=== PATIENT | male | born 1960 | race Caucasian/White ===

== ENCOUNTER 2020-06-11 17:25 | Emergency (ER) | payer BC ==
[2020-06-11 17:40] VITALS: BP 143/90; PULSE 73; RESP 18; TEMP 98.4
[2020-06-11] MEDS ORDERED: DIPH,PERTUS(ACELL)TETVAC-LF 0.5 ML VIAL IM ONE (18:02)
[2020-06-11] MEDS ORDERED: TOPICAL SKIN ADHESIVE 1 EACH AMP TOPICAL ONE (18:02)
--- NOTE | 2020-06-11 18:05 | ED ---
General Adult HPI - General Chief complaint: Head Injury Stated complaint: Head Lac Time Seen by Provider: 06/11/20 17:55 Source: patient, RN notes reviewed, old records reviewed Mode of arrival: wheelchair Limitations: no limitations - History of Present Illness Initial comments: 59-year-old male presenting with a head injury. Patient had a metal chair to pick her fall and strike him in his forehead. No loss consciousness. Patient has overlying laceration on his forehead with minimal bleeding. No anticoagulation. No other significant injuries. - Related Data Allergies Allergy/AdvReac Type Severity Reaction Status Date / Time preservative multidose vial Allergy Hallucinati Uncoded 06/11/20 17:40 ons Review of Systems ROS Statement: Those systems with pertinent positive or pertinent negative responses have been documented in the HPI. ROS Other: All systems not noted in ROS Statement are negative. Past Medical History Past Medical History: Cancer, Hyperlipidemia Additional Past Medical History / Comment(s): seasonal allergies, kidney cancer Additional Past Surgical History / Comment(s): partial nephrectomy Past Psychological History: Depression Smoking Status: Current every day smoker Past Alcohol Use History: Occasional Past Drug Use History: None Reported General Exam Limitations: no limitations General appearance: alert, in no apparent distress Head exam: Present: normocephalic, other (Frontal hematoma, overlying 3 cm partial thickness laceration.) Eye exam: Present: normal appearance, PERRL ENT exam: Present: normal exam Neck exam: Present: normal inspection. Absent: tenderness, meningismus Respiratory exam: Present: normal lung sounds bilaterally. Absent: respiratory distress, wheezes, rales Cardiovascular Exam: Present: regular rate, normal rhythm GI/Abdominal exam: Present: soft. Absent: distended, tenderness Extremities exam: Present: normal inspection, normal capillary refill. Absent: pedal edema, calf tenderness Neurological exam: Present: alert, oriented X3, CN II-XII intact. Absent: motor sensory deficit Psychiatric exam: Present: normal affect, normal mood Skin exam: Present: warm, dry. Absent: cyanosis, diaphoretic Course Vital Signs 06/11/20 17:36 Temperature 98.4 F Pulse Rate 73 Respiratory 18 Rate Blood Pressure 143/90 O2 Sat by Pulse 99 Oximetry - Reevaluation(s) Reevaluation #1: 06/11/20 18:03 Tetanus up-to-date however patient has had adverse reaction to tetanus vaccine. Procedures - Laceration Laceration #1 Consent Obtained: verbal consent Indication: laceration Site: face Description: linear Depth: simple, single layer Pre-repair: wound explored, irrigated extensively, deep structures intact Type of Sutures: other (Skin adhesive) Technique: other (Dermabond) Patient Tolerated Procedure: well, no complications Medical Decision Making - Medical Decision Making 59-year-old male with head injury, laceration of the forehead, 3 cm partial thickness laceration is repaired with Dermabond at the patient's request. Head CT negative for intracranial hemorrhage. Disposition Clinical Impression: Concussion without loss of consciousness, Laceration Disposition: HOME SELF-CARE Condition: Good Instructions (If sedation given, give patient instructions): Concussion (ED), Laceration (ED) Is patient prescribed a controlled substance at d/c from ED?: No Referrals: Phani Decker DO [Primary Care Provider] - 1-2 days Time of Disposition: 19:05
--- NOTE | 2020-06-11 18:45 | CT ---
EXAMINATION TYPE: CT brain wo con DATE OF EXAM: 06/11/2020 COMPARISON: None HISTORY: Head laceration. CT DLP: 1137.4 mGycm Automated exposure control for dose reduction was used. Images obtained of the brain without contrast. Ventricles and sulci appear normal for age. There is no mass effect nor midline shift. There is no si gn of intracranial hemorrhage. The calvarium is intact. There is high density at the skin surface ove r the frontal bone that could be small superficial foreign bodies. IMPRESSION: No intracranial abnormality.
== END 2020-06-11 19:47 | disposition home or self-care (01) ==
LOC: EC 17:25
DX: S06.0X0A Concussion without loss of consciousness, initial encounter (principal); E78.5 Hyperlipidemia, unspecified; F17.200 Nicotine dependence, unspecified, uncomplicated; Z85.528 Personal history of other malignant neoplasm of kidney; Z90.5 Acquired absence of kidney; W22.8XXA Striking against or struck by other objects, initial encounter
CPT/HCPCS: 12011; 70450; 99283

== ENCOUNTER 2021-01-12 12:17 | Inpatient (IN) | payer BC ==
[2021-01-12] MEDS ORDERED: MORPHINE SULFATE 4 MG/ML SYRINGE IV STA (12:45)
--- NOTE | 2021-01-12 12:55 | ED ---
General Adult HPI - General Chief complaint: Chest Pain Stated complaint: chest pain Time Seen by Provider: 01/12/21 12:38 Source: patient, RN notes reviewed, old records reviewed Mode of arrival: wheelchair Limitations: no limitations - History of Present Illness Initial comments: 60-year-old male presenting for evaluation of right lateral chest pain which is worse with movement, worse with deep inspiration. This been present for the past 2 weeks. He has had night sweats over this time. No weight loss. No central chest pain. No cough. He does not have a measured fever but believes he has been running fevers at night. Previous history of renal cell carcinoma. Current smoker. - Related Data Allergies Allergy/AdvReac Type Severity Reaction Status Date / Time preservative multidose vial Allergy Hallucinati Uncoded 01/12/21 12:30 ons Review of Systems ROS Statement: Those systems with pertinent positive or pertinent negative responses have been documented in the HPI. ROS Other: All systems not noted in ROS Statement are negative. Past Medical History Past Medical History: Cancer, Hyperlipidemia Additional Past Medical History / Comment(s): seasonal allergies, kidney cancer Additional Past Surgical History / Comment(s): partial nephrectomy Past Psychological History: Depression Smoking Status: Current every day smoker Past Alcohol Use History: Daily Past Drug Use History: None Reported General Exam Limitations: no limitations General appearance: alert, in no apparent distress Head exam: Present: atraumatic, normocephalic Eye exam: Present: normal appearance, PERRL ENT exam: Present: normal exam Neck exam: Present: normal inspection. Absent: tenderness, meningismus Respiratory exam: Present: chest wall tenderness (Right lateral, axillary), decreased breath sounds. Absent: respiratory distress Cardiovascular Exam: Present: regular rate, normal rhythm GI/Abdominal exam: Present: soft. Absent: distended, tenderness, guarding Extremities exam: Present: normal inspection, normal capillary refill. Absent: pedal edema, calf tenderness Neurological exam: Present: alert, oriented X3, CN II-XII intact. Absent: motor sensory deficit Psychiatric exam: Present: normal affect, normal mood Skin exam: Present: warm, dry, intact. Absent: cyanosis, diaphoretic Course Vital Signs 01/12/21 01/12/21 12:26 13:15 Temperature 98.5 F Pulse Rate 66 Pulse Rate [ 63 Sitting Pulse Oximetery] Respiratory 18 Rate Blood Pressure 127/80 O2 Sat by Pulse 97 Oximetry EKG Findings - EKG Comments: EKG Findings:: DD: Normal sinus rhythm, rate of 67, OR interval 166, QRS duration 76, no ST segment elevation. Medical Decision Making - Medical Decision Making 60-year-old male with right-sided pleuritic chest pain. Workup is initiated. He has a mild leukocytosis, stable he will, normal electrolytes, positive d- dimer, normal troponin, negative coronavirus. Patient has x-ray showing no pneumonia. CT angiography was performed which shows a large right-sided pneumonia with parapneumonic effusion. Patient started on antibiotics. He will be admitted for IV antibiotics and pain control. Case discussed with Dr. Hernandez, will admit. - Lab Data Result diagrams: 01/12/21 13:07 01/12/21 13:07 Lab Results 01/12/21 01/12/21 01/12/21 Range/Units 13:07 13:07 13:07 WBC 12.4 H (3.8-10.6) k/uL RBC 4.39 (4.30-5.90) m/uL Hgb 15.0 (13.0-17.5) gm/dL Hct 44.3 (39.0-53.0) % MCV 100.9 H (80.0-100.0) fL MCH 34.1 (25.0-35.0) pg MCHC 33.8 (31.0-37.0) g/dL RDW 12.2 (11.5-15.5) % Plt Count 241 (150-450) k/uL MPV 7.7 Neutrophils % 83 % Lymphocytes % 9 % Monocytes % 4 % Eosinophils % 2 % Basophils % 0 % Neutrophils # 10.4 H (1.3-7.7) k/uL Lymphocytes # 1.2 (1.0-4.8) k/uL Monocytes # 0.5 (0-1.0) k/uL Eosinophils # 0.2 (0-0.7) k/uL Basophils # 0.0 (0-0.2) k/uL PT 11.0 (9.0-12.0) sec INR 1.0 (<1.2) APTT 22.4 (22.0-30.0) sec D-Dimer 0.81 H (<0.60) mg/L FEU Sodium 136 L (137-145) mmol/L Potassium 4.1 (3.5-5.1) mmol/L Chloride 106 (98-107) mmol/L Carbon Dioxide 24 (22-30) mmol/L Anion Gap 6 mmol/L BUN 15 (9-20) mg/dL Creatinine 0.72 (0.66-1.25) mg/dL Est GFR (CKD-EPI)AfAm >90 (>60 ml/min/1.73 sqM) Est GFR (CKD-EPI)NonAf >90 (>60 ml/min/1.73 sqM) Glucose 111 H (74-99) mg/dL Calcium 9.4 (8.4-10.2) mg/dL Magnesium 1.8 (1.6-2.3) mg/dL Total Bilirubin 0.6 (0.2-1.3) mg/dL AST 22 (17-59) U/L ALT 23 (4-49) U/L Alkaline Phosphatase 70 (38-126) U/L Troponin I (0.000-0.034) ng/mL Total Protein 6.2 L (6.3-8.2) g/dL Albumin 3.6 (3.5-5.0) g/dL Coronavirus (PCR) (Not Detectd) 01/12/21 01/12/21 Range/Units 13:07 13:20 WBC (3.8-10.6) k/uL RBC (4.30-5.90) m/uL Hgb (13.0-17.5) gm/dL Hct (39.0-53.0) % MCV (80.0-100.0) fL MCH (25.0-35.0) pg MCHC (31.0-37.0) g/dL RDW (11.5-15.5) % Plt Count (150-450) k/uL MPV Neutrophils % % Lymphocytes % % Monocytes % % Eosinophils % % Basophils % % Neutrophils # (1.3-7.7) k/uL Lymphocytes # (1.0-4.8) k/uL Monocytes # (0-1.0) k/uL Eosinophils # (0-0.7) k/uL Basophils # (0-0.2) k/uL PT (9.0-12.0) sec INR (<1.2) APTT (22.0-30.0) sec D-Dimer (<0.60) mg/L FEU Sodium (137-145) mmol/L Potassium (3.5-5.1) mmol/L Chloride (98-107) mmol/L Carbon Dioxide (22-30) mmol/L Anion Gap mmol/L BUN (9-20) mg/dL Creatinine (0.66-1.25) mg/dL Est GFR (CKD-EPI)AfAm (>60 ml/min/1.73 sqM) Est GFR (CKD-EPI)NonAf (>60 ml/min/1.73 sqM) Glucose (74-99) mg/dL Calcium (8.4-10.2) mg/dL Magnesium (1.6-2.3) mg/dL Total Bilirubin (0.2-1.3) mg/dL AST (17-59) U/L ALT (4-49) U/L Alkaline Phosphatase (38-126) U/L Troponin I <0.012 (0.000-0.034) ng/mL Total Protein (6.3-8.2) g/dL Albumin (3.5-5.0) g/dL Coronavirus (PCR) Not Detected (Not Detectd) Disposition Clinical Impression: Pneumonia, Parapneumonic effusion Disposition: ADMITTED IP TO THIS [facility] Condition: Stable Is patient prescribed a controlled substance at d/c from ED?: No Referrals: Phani Decker DO [Primary Care Provider] - 1-2 days Decision to Admit Reason: Admit from EC Decision Date: 01/12/21 Decision Time: 15:50
[2021-01-12 13:17] LABS: Basophils % (A) 0 %; Eosinophils # (A) 0.2 k/uL (0-0.7); Eosinophils % (A) 2 %; HCT 44.3 % (39.0-53.0); Lymphocytes # (A) 1.2 k/uL (1.0-4.8); Lymphocytes % (A) 9 %; MCH 34.1 pg (25.0-35.0); MCHC 33.8 g/dL (31.0-37.0); MCV 100.9 fL (80.0-100.0); Mean Platelet Volume 7.7; Monocytes # (A) 0.5 k/uL (0-1.0); Monocytes % (A) 4 %; Neutrophils # (A) 10.4 k/uL (1.3-7.7); Neutrophils % (A) 83 %; Platelet Count 241 k/uL (150-450); RBC 4.39 m/uL (4.30-5.90); RDW 12.2 % (11.5-15.5); WBC 12.4 k/uL (3.8-10.6)
[2021-01-12 13:32] LABS: Partial Thromboplastin Time 22.4 sec (22.0-30.0)
--- NOTE | 2021-01-12 13:40 | XR ---
EXAMINATION TYPE: XR chest 2V DATE OF EXAM: 01/12/2021 COMPARISON: NONE TECHNIQUE: PA and lateral views submitted. HISTORY: Chest pain FINDINGS: Bilateral lower lobe infiltrate and small effusion. Heart size normal. No pneumothorax. Coarsened int erstitium. IMPRESSION: 1. Bilateral infiltrate and pleural effusion correlate for pneumonia otherwise consider CHF.
[2021-01-12 13:45] LABS: ALT 23 U/L (4-49); AST 22 U/L (17-59); African American GFR (CKD) >90 (>60 ml/min/1.73 sqM); Albumin 3.6 g/dL (3.5-5.0); Alkaline Phosphatase 70 U/L (38-126); Anion Gap 6 mmol/L; Blood Urea Nitrogen 15 mg/dL (9-20); Calcium 9.4 mg/dL (8.4-10.2); Carbon Dioxide 24 mmol/L (22-30); Chloride 106 mmol/L (98-107); Glucose 111 mg/dL (74-99); Magnesium 1.8 mg/dL (1.6-2.3); Non-African American GFR(CKD) >90 (>60 ml/min/1.73 sqM); Potassium 4.1 mmol/L (3.5-5.1); Sodium 136 mmol/L (137-145); Total Bilirubin 0.6 mg/dL (0.2-1.3); Total Protein 6.2 g/dL (6.3-8.2)
[2021-01-12] MEDS ORDERED: HYDROmorphone 0.5 MG/0.5 ML SYRINGE IVP STA (14:06)
[2021-01-12] MEDS ORDERED: KETOROLAC 15 MG/ML 1 ML VIAL IVP STA (14:20)
[2021-01-12] MEDS ORDERED: cefTRIAXone IN SWFI 1,000 MG/10 ML SYRINGE IVP STA (15:20)
--- NOTE | 2021-01-12 15:32 | CT ---
EXAMINATION TYPE: CT angio chest DATE OF EXAM: 01/12/2021 COMPARISON: None HISTORY: chest pain CT DLP: 467.9 mGycm Automated exposure control for dose reduction was used. CONTRAST: Performed with IV Contrast, patient injected with 100 mL of Isovue 370. There are 3-D post processed images. There is right pleural effusion. There is patchy airspace infiltrate and atelectasis in the right low er lobe. There is similar mild interstitial infiltrate and atelectasis left lower lobe. Heart size is normal. There is no pericardial effusion. There is no mediastinal adenopathy. There are no hilar masses. There is normal contrast opacification of the pulmonary arteries. There are no filling defects. There is mild right bronchial adenopathy. The thoracic spine is intact. Sternum is intact. Upper abdominal soft tissues are intact. Thoracic aorta is intact. There is no aneurysm or dissection. IMPRESSION: No evidence of pulmonary embolism. Extensive pneumonia and atelectasis with pleural fluid in the righ t lower lobe. Mild infiltrate left lower lobe.
[2021-01-12] MEDS ORDERED: AZITHROMYCIN 500 MG in SODIUM CHLORIDE 0.9% 250 ML IVPB STA (15:46)
[2021-01-12] MEDS ORDERED: ACETAMINOPHEN TAB 325 MG TAB PO PRN (15:46)
[2021-01-12] MEDS ORDERED: KETOROLAC 15 MG/ML 1 ML VIAL IVP PRN (15:46)
[2021-01-12] MEDS ORDERED: NALOXONE 0.4 MG/ML 1 ML VIAL IV PRN (15:46)
[2021-01-12] MEDS ORDERED: NICOTINE 21MG/24HR PATCH TRANSDERM STA (15:50)
[2021-01-12] MEDS: SODIUM CHLORIDE 0.9% 1,000 ML IV SCH (16:42)
[2021-01-12] MEDS: HYDROmorphone 0.5 MG/0.5 ML SYRINGE IVP PRN (17:50)
[2021-01-12] MEDS: HYDROmorphone 1 MG/ML 1 ML SYRINGE IVP PRN (20:47)
[2021-01-13] MEDS: HYDROmorphone 1 MG/ML 1 ML SYRINGE IVP PRN ×4 (00:30→10:13)
[2021-01-13] MEDS: SODIUM CHLORIDE 0.9% 1,000 ML IV SCH ×2 (05:50→21:39)
[2021-01-13] MEDS: ATORVASTATIN 10 MG TAB PO SCH (09:28)
[2021-01-13] MEDS: HYDROmorphone 0.5 MG/0.5 ML SYRINGE IVP PRN (12:52)
[2021-01-13] MEDS: CEFEPIME 1 GM in SODIUM CHLORIDE 0.9% 50 ML IVPB SCH ×2 (12:53→21:25)
[2021-01-13] MEDS: ENOXAPARIN 40 MG/0.4 ML SYRINGE SQ SCH (12:53)
--- NOTE | 2021-01-13 14:17 | P.CNPUL ---
History of Present Illness Consult date: 01/13/21 Reason for consult: dyspnea Chief complaint: right lung pain History of present illness: 60-year-old male patient presented emergency department because of extensive pain and spasm along the right side of the chest. This started approximately 2- 3 weeks ago and over the past 24 hours it was getting quite severe. He was also having fever with a temperature of 102.2 at home. He was having some chills. He was uncomfortable. He was getting short of breath and he started developing also some cough and. Most significant complaint was the spasm along the right side of the chest. He presented emergency department. Chest x-ray revealed a right lower lobe consolidation. Computed tomography scan of the chest was also done that showed right lower lobe consolidation along with some volume loss and some infiltration involving the right midlung. Consider bilobar pneumonia. He was given IV cefepime. He is currently on oxygen at 2 L. Hemodynamically stable. Note that the patient's CAT scan also shows some background emphysema. The patient is a chronic smoker and continues to smoke around one pack of cigare ttes a day. No altered mentation. No hemoptysis. The pain is worse with deep breathing. Note previous history of any DVTs or pulmonary embolism. COVID-19 testing was negative. Does not receive his COVID-19 vaccination because of some history of ALLERGIES to hours tetanus shots. He has previous history of renal cell carcinoma and the patient has undergone partial nephrectomy on the right. No history of any cardiac disease. No myocardial infarction. No previous history of DVT or pulmonary embolism. No diabetes mellitus. 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 Review of Systems Constitutional: Reports chills, Reports fatigue, Reports fever, Reports poor appetite Eyes: denies as per HPI, denies blurred vision, denies bulging eye, denies decreased vision, denies diplopia, denies discharge, denies dry eye, denies irritation, denies itching, denies pain, denies photophobia, denies loss of peripheral vision, denies loss of vision, denies tunnel vision/blind spots Ears: deny: decreased hearing, ear discharge, earache, tinnitus Ears, nose, mouth and throat: Reports as per HPI Breasts: absent: as per HPI, gynecomastia Cardiovascular: Reports chest pain, Reports decreased exercise tolerance, Reports dyspnea on exertion, Reports shortness of breath Respiratory: Reports cough Gastrointestinal: Reports as per HPI Genitourinary: Reports as per HPI Musculoskeletal: Reports as per HPI Musculoskeletal: absent: ankle pain, ankle stiffness, ankle swelling, as per HPI, elbow pain, elbow stiffness, elbow swelling, foot pain, foot stiffness, foot swelling, hand pain, hand stiffness, hand swelling, hip pain, hip stiffness, hip swelling, knee pain, knee stiffness, knee swelling, shoulder pain, shoulder stiffness, shoulder swelling, wrist pain, wrist stiffness, wrist swelling Integumentary: Reports as per HPI Neurological: Reports as per HPI, Reports weakness Psychiatric: Reports as per HPI Endocrine: Reports as per HPI Hematologic/Lymphatic: Reports as per HPI Allergic/Immunologic: Reports as per HPI Past Medical History Past Medical History: Cancer, COPD, Hyperlipidemia Additional Past Medical History / Comment(s): seasonal allergies, kidney cancer- RCC had a partial nephrectomy on the right History of Any Multi-Drug Resistant Organisms: None Reported Additional Past Surgical History / Comment(s): partial nephrectomy Past Anesthesia/Blood Transfusion Reactions: No Reported Reaction Past Psychological History: Depression Smoking Status: Current every day smoker Past Alcohol Use History: Daily Past Drug Use History: None Reported - Past Family History Mother History Unknown: Yes Medications and Allergies Home Medications Medication Instructions Recorded Confirmed Type Atorvastatin Calcium [Lipitor] 10 mg PO DAILY 01/12/21 01/12/21 History DULoxetine HCL [Cymbalta] 30 mg PO HS 01/12/21 01/12/21 History Montelukast [Singulair] 10 mg PO HS 01/12/21 01/12/21 History Allergies Allergy/AdvReac Type Severity Reaction Status Date / Time preservative multidose vial Allergy Hallucinati Uncoded 01/12/21 16:11 ons Physical Exam Vitals: Vital Signs Temp Pulse Pulse Resp BP BP Pulse Ox 01/13/21 13:00 98.9 F 81 18 136/86 94 L 01/13/21 06:01 100.6 F H 92 18 127/89 92 L 01/13/21 03:45 85 18 122/86 95 01/13/21 00:31 99.0 F 97 18 122/86 94 L 01/12/21 21:30 70 18 122/86 96 01/12/21 18:52 73 18 97/77 92 L Intake and Output 01/12/21 01/13/21 01/13/21 22:59 06:59 14:59 Other: Weight 92.986 kg Gen. appearance, comfortable and mild degree of respiratory distress and the patient is getting pain is present on the right side of the chest Head exam was generally normal. There was no scleral icterus or corneal arcus. Mucous membranes were moist. Neck was supple and without jugular venous distension, thyromegaly, or carotid bruits. Carotids were easily palpable bilaterally. There was no adenopathy. Lungs sounds are diminished in the right lung base along with some limited contact his underlying bases especially on the right. Cardiac exam revealed the PMI to be normally situated and sized. The rhythm was regular and no extrasystoles were noted during several minutes of auscultation. The first and second heart sounds were normal and physiologic splitting of the second heart sound was noted. There were no murmurs, rubs, clicks, or gallops. Abdominal exam revealed normal bowel sounds. The abdomen was soft, non-tender, and without masses, organomegaly, or appreciable enlargement of the abdominal aorta. Examination of the extremities revealed easily palpable radial, femoral and pedal pulses. There was no cyanosis, clubbing or edema. Examination of the skin revealed no evidence of significant rashes, suspicious appearing nevi or other concerning lesions. Neurologically, the patient is awake and alert and the patient does not have any focal neurological deficit. Cranial nerves are essentially intact. Results - Laboratory Findings CBC and BMP: 01/12/21 13:07 01/12/21 13:07 PT/INR, D-dimer PT 11.0 sec (9.0-12.0) 01/12/21 13:07 INR 1.0 (<1.2) 01/12/21 13:07 D-Dimer 0.81 mg/L FEU (<0.60) H 01/12/21 13:07 Abnormal lab findings: Abnormal Labs 01/12/21 01/12/21 01/12/21 13:07 13:07 13:07 WBC 12.4 H MCV 100.9 H Neutrophils # 10.4 H D-Dimer 0.81 H Sodium 136 L Glucose 111 H Total Protein 6.2 L - Diagnostic Findings Chest x-ray: image reviewed CT scan - chest: image reviewed Assessment and Plan Plan: 1 acute right lower lobe pneumonia, likely community-acquired, involving the right lower lobe and to some minimal extent the right middle lobe. 2 acute pleuritic right-sided chest wall pain secondary to above 3 acute hypoxic respiratory failure secondary to above 4 mild leukocytosis 5 COPD with some limited emphysematous changes as evident on the CAT scan of the chest 6 history of smoking around one pack of cigarette a day and the patient carries more than [id number] smoking history 7 history of renal cell carcinoma post partial nephrectomy on the right 8 hyperlipidemia Plan Cover the patient with broad-spectrum antibiotics and provide him a combination of Levaquin and cefepime Blood cultures and sputum cultures IV Solu Medrol 40 mg every 12 hours Adequate pain control regarding his pleuritic right-sided chest wall pain Follow-up chest x-ray within the next 24-48 hours COVID-19 testing is been negative Smoking cessation counseling Albuterol nebulized treatments 4 times a day around the clock and when necessary Legionella urine antigen We'll continue to follow
[2021-01-13] MEDS ORDERED: IPRATROPIUM-ALBUTEROL 3 ML NEB INHALATION PRN (14:18)
[2021-01-13] MEDS: LEVOFLOXACIN 750 MG TAB PO SCH (15:56)
[2021-01-13] MEDS: methylPREDNISolone SOD SUCCI 40 MG/ML 1 ML VIAL IV SCH ×2 (15:56→21:32)
[2021-01-13] MEDS: NICOTINE 21MG/24HR PATCH TRANSDERM SCH (16:39)
[2021-01-13] MEDS ORDERED: NAPROXEN 250 MG TAB PO STA (16:41)
[2021-01-13] MEDS: IPRATROPIUM-ALBUTEROL 3 ML NEB INHALATION SCH ×3 (16:42→20:10)
[2021-01-13] MEDS: BUDESONIDE 1 MG/2 ML NEBU INHALATION SCH ×2 (16:42→20:10)
--- NOTE | 2021-01-13 16:43 | P.HPIM ---
History of Present Illness H&P Date: 01/13/21 Chief Complaint: Chest pain This is a pleasant 60-year-old patient who follows with Dr. Decker. Chronic stable medical conditions include ALLERGIES, joint pains, hyperlipidemia, long- standing smoker. Patient for 4-5 weeks has been having right-sided chest pain. Initially it was intermittent. Progressively got worse became became more constant. Pleuritic in nature. Started having fever and chills cough bouts of perspiration. Decreased appetite. Tired rundown. Patient had not seen anybody in the meantime. Decided to finally come in. Also some wheezing. Chest tightness. His at the bedside. Otherwise patient is rather fairly active. [Patient in the past has had a tetanus shot and 10 hours after that he had developed a severe reaction.] Because of that he did not take the COVID vaccination. Review of systems: GEN.: Fever chills decreased appetite tired EYES: None HEENT: None NECK: None RESPIRATORY: As above CARDIOVASCULAR: No left chest pain GASTROINTESTINAL: None GENITOURINARY: None MUSCULOSKELETAL: None LYMPHATICS: None HEMATOLOGICAL: None PSYCHIATRY: None NEUROLOGICAL: None Past medical history to include: Right-sided renal cell cancer with partial nephrectomy in 2014. Patient had serial follow-up optical 2 years ago. COPD, hyperlipidemia, seasonal ALLERGIES, depression Social history: Patient drinks 4-5 beers about 5 times a week. . 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 Family history: Reviewed, noncontributory to presentation Physical examination: VITAL SIGNS: 100.6, 92, 18, 1 27 x 89, 92% on 3 L GENERAL: BMI 29.4, reclining in bed, tired, awake. EYES: Pupils equal. Conjunctiva normal. HEENT: External appearance of nose and ears normal, oral cavity grossly normal. NECK: JVD not raised; masses not palpable. HEART: First and second heart sounds are normal; no edema. LUNGS: Respiratory rate increased, decreased breaths on some coarse crackles at the bases. ABDOMEN: Soft, nontender, liver spleen not palpable, no masses palpable. PSYCH: Alert and oriented x3; mood and affect normal. NEUROLOGICAL: Cranial nerves grossly intact; no facial asymmetry, power and sensation grossly intact. LYMPHATICS: No lymph nodes palpable in the axilla and neck INVESTIGATIONS, reviewed in the clinical context: WBC 12.4 hemoglobin 15 platelets 241 d-dimer 0.81 sodium 136 potassium 4.1 BUN 15 creatinine 0.7 to Troponin I less than 0.012 Coronavirus [PCR]: Not detected Urine Legionella antigen negative EKG tracing personally reviewed by me-normal sinus rhythm, 67/m Chest x-ray film personally reviewed by me-bilateral infiltrates. Pleural effusion. Chest CTA: Negative for PE. Extensive pneumonia and atelectasis with pleural effusion on the right lower lobe. Assessment and plan: -This patient's had pulmonary symptoms with severe pleuritic pain going on for good 4-5 weeks. Had not sought any medical attention. Has a significant pneumonia with effusion. Clinical picture of sepsis. IV cefepime 1 g every 8 hours started. IV fluids -Sepsis from pneumonia IV antibiotics, fluids -Acute COPD exacerbation in a current smoker DuoNeb 4 times a day, IV Solu-Medrol -Chronic nicotine dependence, cigarettes smoker Nicotine patch -Chronic ALLERGIES Singlet 10 mg daily at bedtime -Hyperlipidemia Lipitor 10 mg daily -Right-sided pleuritic chest pain from underlying pneumonia Naproxen 250 mg 3 times a day Care was discussed with the patient. Questions were answered. IV cefepime. IV fluids. DuoNeb, IV Solu-Medrol. Pulmonary consultation. Subcu Lovenox. Naproxen for pleurisy Given the complexity and severity of patient's condition expect the patient to be in the hospital at least for 2 overnights Past Medical History Past Medical History: Cancer, Hyperlipidemia Additional Past Medical History / Comment(s): seasonal allergies, kidney cancer Additional Past Surgical History / Comment(s): partial nephrectomy Past Psychological History: Depression Smoking Status: Current every day smoker Past Alcohol Use History: Daily Past Drug Use History: None Reported - Past Family History Mother History Unknown: Yes Medications and Allergies Home Medications Medication Instructions Recorded Confirmed Type Atorvastatin Calcium [Lipitor] 10 mg PO DAILY 01/12/21 01/12/21 History DULoxetine HCL [Cymbalta] 30 mg PO HS 01/12/21 01/12/21 History Montelukast [Singulair] 10 mg PO HS 01/12/21 01/12/21 History Allergies Allergy/AdvReac Type Severity Reaction Status Date / Time preservative multidose vial Allergy Hallucinati Uncoded 01/12/21 16:11 ons Physical Exam Vitals: Vital Signs Temp Pulse Pulse Resp BP Pulse Ox 01/13/21 06:01 100.6 F H 92 18 127/89 92 L 01/13/21 03:45 85 18 122/86 95 01/13/21 00:31 99.0 F 97 18 122/86 94 L 01/12/21 21:30 70 18 122/86 96 01/12/21 18:52 73 18 97/77 92 L 01/12/21 13:15 63 01/12/21 12:26 98.5 F 66 18 127/80 97 Results CBC & Chem 7: 01/12/21 13:07 01/12/21 13:07 Labs: Abnormal Lab Results - Last 24 Hours (Table) 01/12/21 01/12/21 01/12/21 Range/Units 13:07 13:07 13:07 WBC 12.4 H (3.8-10.6) k/uL MCV 100.9 H (80.0-100.0) fL Neutrophils # 10.4 H (1.3-7.7) k/uL D-Dimer 0.81 H (<0.60) mg/L FEU Sodium 136 L (137-145) mmol/L Glucose 111 H (74-99) mg/dL Total Protein 6.2 L (6.3-8.2) g/dL
[2021-01-13] MEDS: NAPROXEN 250 MG TAB PO SCH (21:32)
[2021-01-13] MEDS: MONTELUKAST 10 MG TAB PO SCH (21:34)
[2021-01-13] MEDS: FAMOTIDINE 20 MG TAB PO SCH (21:35)
[2021-01-13] MEDS: DULoxetine HCL 30 MG CAPSULE.DR PO SCH (22:04)
[2021-01-14] MEDS: CEFEPIME 1 GM in SODIUM CHLORIDE 0.9% 50 ML IVPB SCH ×3 (04:35→21:18)
[2021-01-14 07:54] VITALS: RESP 16
[2021-01-14] MEDS: methylPREDNISolone SOD SUCCI 40 MG/ML 1 ML VIAL IV SCH ×2 (07:56→21:19)
[2021-01-14] MEDS: LEVOFLOXACIN 750 MG TAB PO SCH (07:56)
[2021-01-14] MEDS: NAPROXEN 250 MG TAB PO SCH ×3 (07:56→21:18)
[2021-01-14] MEDS: FAMOTIDINE 20 MG TAB PO SCH ×2 (07:56→21:19)
[2021-01-14] MEDS: ATORVASTATIN 10 MG TAB PO SCH (07:56)
[2021-01-14] MEDS: ENOXAPARIN 40 MG/0.4 ML SYRINGE SQ SCH (07:57)
--- NOTE | 2021-01-14 07:58 | XR ---
EXAMINATION TYPE: XR chest 1V DATE OF EXAM: 01/14/2021 COMPARISON: 01/12/2021 HISTORY: 60-year-old male pneumonia TECHNIQUE: Single frontal view of the chest is obtained. FINDINGS: Heart normal size. Aorta and pulmonary vasculature within normal limits. Some mild patchy density at the left base probably represents atelectasis. Worsening, now more confluent airspace opacity at the right base. No pleural effusion. IMPRESSION: Worsening, now more confluent right basilar pneumonia.
[2021-01-14] MEDS: BUDESONIDE 1 MG/2 ML NEBU INHALATION SCH ×2 (08:12→20:03)
[2021-01-14] MEDS: IPRATROPIUM-ALBUTEROL 3 ML NEB INHALATION SCH ×4 (08:12→20:03)
[2021-01-14] MEDS: NICOTINE 21MG/24HR PATCH TRANSDERM SCH ×2 (09:52→16:48)
--- NOTE | 2021-01-14 12:14 | P.PN ---
Subjective Progress Note Date: 01/14/21 Principal diagnosis: Community-acquired pneumonia 60-year-old male patient presented emergency department because of extensive pain and spasm along the right side of the chest. This started approximately 2- 3 weeks ago and over the past 24 hours it was getting quite severe. He was also having fever with a temperature of 102.2 at home. He was having some chills. He was uncomfortable. He was getting short of breath and he started developing also some cough and. Most significant complaint was the spasm along the right side of the chest. He presented emergency department. Chest x-ray revealed a right lower lobe consolidation. Computed tomography scan of the chest was also done that showed right lower lobe consolidation along with some volume loss and some infiltration involving the right midlung. Consider bilobar pneumonia. He was given IV cefepime. He is currently on oxygen at 2 L. Hemodynamically stable. Note that the patient's CAT scan also shows some background emphysema. The patient is a chronic smoker and continues to smoke around one pack of ciga rettes a day. No altered mentation. No hemoptysis. The pain is worse with deep breathing. Note previous history of any DVTs or pulmonary embolism. COVID-19 testing was negative. Does not receive his COVID-19 vaccination because of some history of ALLERGIES to hours tetanus shots. He has previous history of renal cell carcinoma and the patient has undergone partial nephrectomy on the right. No history of any cardiac disease. No myocardial infarction. No previous history of DVT or pulmonary embolism. No diabetes mellitus. 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 The patient is seen today in 01/14/2021 in follow-up on the observation unit. He is currently sitting up in bed. Awake and alert in no acute distress. Breathing a bit easier today compared to yesterday. Still with some right-sided chest discomfort. Legionella antigen negative. Coronavirus negative. He remains on cefepime, Levaquin, Solu-Medrol, bronchodilators and Lovenox for DVT prophylaxis. Chest x-ray showing increased infiltrate at the right lower lobe. Some minimal atelectasis on the left. Blood culture reveals no growth to date. He did have a T-max of 100.6. Currently afebrile. He is on 4 L nasal cannula t o maintain O2 saturations at 92%. Objective - Vital Signs Vital signs: Vital Signs Temp 97.6 F 10/19/21 05:00 Pulse 80 01/14/21 11:39 Resp 16 01/14/21 07:54 BP 128/75 01/14/21 07:54 Pulse Ox 92 L 01/14/21 08:12 Intake & Output 01/13/21 01/14/21 01/14/21 18:59 06:59 18:59 Intake Total 950 1000 Balance 950 1000 Weight 92.986 kg Intake: Intake, IV Titration 950 1000 Amount Cefepime 1 gm In Sodium 50 100 Chloride 0.9% 50 ml @ 12. 5 mls/hr IVPB Q8H [facility] Rx# :[id number] Sodium Chloride 0.9% 1, 900 900 000 ml @ 75 mls/hr IV . [id number] [facility] Rx#:[id number] Other: Voiding Method Toilet # Voids 3 - Exam GENERAL EXAM: Alert, pleasant 60-year-old gentleman, on 4 L nasal cannula and a fairly comfortable in no apparent distress. HEAD: Normocephalic. EYES: Normal reaction of pupils, equal size. NOSE: Clear with pink turbinates. THROAT: No erythema or exudates. NECK: No masses, no JVD. CHEST: No chest wall deformity. LUNGS: Equal air entry with few scattered rhonchi, crackles in the bases right greater than left. CVS: S1 and S2 normal with no audible murmur, regular rhythm. ABDOMEN: No hepatosplenomegaly, normal bowel sounds, no guarding or rigidity. SPINE: No scoliosis or deformity SKIN: No rashes CENTRAL NERVOUS SYSTEM: No focal deficits, tone is normal in all 4 extremities. EXTREMITIES: There is no peripheral edema. No clubbing, no cyanosis. Peripheral pulses are intact. - Labs CBC & Chem 7: 01/12/21 13:07 01/12/21 13:07 Labs: Microbiology - Last 24 Hours (Table) 01/12/21 16:42 Blood Culture - Preliminary Blood No Growth after 24 hours 01/12/21 16:42 Blood Culture - Preliminary Blood No Growth after 24 hours Assessment and Plan Assessment: 1 acute right lower lobe pneumonia, likely community-acquired, involving the right lower lobe and to some minimal extent the right middle lobe. 2 acute pleuritic right-sided chest wall pain secondary to above 3 acute hypoxic respiratory failure secondary to above 4 mild leukocytosis 5 COPD with some limited emphysematous changes as evident on the CAT scan of the chest 6 history of smoking around one pack of cigarette a day and the patient carries more than [id number] smoking history 7 history of renal cell carcinoma post partial nephrectomy on the right 8 hyperlipidemia Plan: The patient was seen and evaluated by Dr. Wilburn Chest x-ray reviewed increased density in the right Remains on cefepime and Levaquin along with bronchodilators Continue IV Solu-Medrol Legionella urine antigen negative, CoVID negative Obtain a sputum culture We will continue to follow and make further recommendations based on his clinical status I, the cosigning physician, performed a history & physical examination of the patient. Lungs sounds with few scattered rhonchi, crackles in the bases right greater than left. Maintaining good O2 saturations in the 90s on room air. I discussed the assessment and plan of care with my nurse practitioner, Karla Cain. I attest to the above note as dictated by her.
[2021-01-14] MEDS: SODIUM CHLORIDE 0.9% 1,000 ML IV SCH ×2 (12:46→21:26)
--- NOTE | 2021-01-14 13:26 | P.PN ---
Progress Note - Text Progress Note Date: 01/14/21 Chief Complaint: Chest pain This is a pleasant 60-year-old patient who follows with Dr. Decker. Chronic stable medical conditions include ALLERGIES, joint pains, hyperlipidemia, long- standing smoker. Patient for 4-5 weeks has been having right-sided chest pain. Initially it was intermittent. Progressively got worse became became more constant. Pleuritic in nature. Started having fever and chills cough bouts of perspiration. Decreased appetite. Tired rundown. Patient had not seen anybody in the meantime. Decided to finally come in. Also some wheezing. Chest tightness. His at the bedside. Otherwise patient is rather fairly active. [Patient in the past has had a tetanus shot and 10 hours after that he had developed a severe reaction.] Because of that he did not take the COVID vaccination. Admitted with pneumonia, pleurisy, acute COPD exacerbation,. Started on IV cefepime, DuoNeb, IV Solu-Medrol. 01/14/2021: Sitting at the edge of the bed. Breathing better. Improving pruritic chest pain. Oral intake better. at the bedside. Care was discussed with the patient and . Review of systems: Was done for constitutional, cardiovascular, GI, pulmonary. relevant finding as above Active Medications Acetaminophen (Acetaminophen Tab 325 Mg Tab) 650 mg PO Q6HR PRN PRN Reason: Mild Pain or Fever > 100.5 Last Admin: 01/13/21 05:57 Dose: 650 mg Documented by: Albuterol/Ipratropium (Ipratropium-Albuterol 3 Ml Neb) 3 ml INHALATION RT-QID [facility] Last Admin: 01/14/21 11:26 Dose: 3 ml Documented by: Albuterol/Ipratropium (Ipratropium-Albuterol 3 Ml Neb) 3 ml INHALATION RT-Q2H PRN PRN Reason: Shortness Of Breath Or Wheezing Atorvastatin Calcium (Atorvastatin 10 Mg Tab) 10 mg PO DAILY [facility] Last Admin: 01/14/21 07:56 Dose: 10 mg Documented by: Budesonide (Budesonide 1 Mg/2 Ml Nebu) 1 mg INHALATION RT-BID [facility] Last Admin: 01/14/21 08:12 Dose: 1 mg Documented by: Duloxetine HCl (Duloxetine Hcl 30 Mg ) 30 mg PO [facility] Last Admin: 01/13/21 22:04 Dose: 30 mg Documented by: Enoxaparin Sodium (Enoxaparin 40 Mg/0.4 Ml Syringe) 40 mg SQ DAILY [facility] Last Admin: 01/14/21 07:57 Dose: 40 mg Documented by: Famotidine (Famotidine 20 Mg Tab) 20 mg PO BID [facility] Last Admin: 01/14/21 07:56 Dose: 20 mg Documented by: Hydromorphone HCl (Hydromorphone 0.5 Mg/0.5 Ml Syringe) 0.5 mg IVP Q3HR PRN PRN Reason: Moderate Pain Last Admin: 01/13/21 12:52 Dose: 0.5 mg Documented by: Hydromorphone HCl (Hydromorphone 1 Mg/Ml 1 Ml Syringe) 1 mg IVP Q3HR PRN PRN Reason: Severe Pain Last Admin: 01/13/21 10:13 Dose: 1 mg Documented by: Sodium Chloride (Saline 0.9%) 1,000 mls @ 75 mls/hr IV .[id number] [facility] Last Admin: 01/14/21 12:46 Dose: 75 mls/hr Documented by: Cefepime HCl 1 gm/ Sodium (Chloride) 50 mls @ 12.5 mls/hr IVPB Q8H [facility] Last Admin: 01/14/21 12:44 Dose: 12.5 mls/hr Documented by: Levofloxacin (Levofloxacin 750 Mg Tab) 750 mg PO DAILY [facility] Last Admin: 01/14/21 07:56 Dose: 750 mg Documented by: Methylprednisolone Sodium Succinate (Methylprednisolone Sod Succi 40 Mg/Ml 1 Ml Vial) 40 mg IV Q12HR [facility] Last Admin: 01/14/21 07:56 Dose: 40 mg Documented by: Montelukast Sodium (Montelukast 10 Mg Tab) 10 mg PO HS [facility] Last Admin: 01/13/21 21:34 Dose: 10 mg Documented by: Naloxone HCl (Naloxone 0.4 Mg/Ml 1 Ml Vial) 0.2 mg IV Q2M PRN PRN Reason: Opioid Reversal Naproxen (Naproxen 250 Mg Tab) 250 mg PO TID [facility] Stop: 01/14/21 23:59 Last Admin: 01/14/21 07:56 Dose: 250 mg Documented by: Nicotine (Nicotine 21mg/24hr Patch) 1 patch TRANSDERM DAILY [facility] Last Admin: 01/14/21 09:52 Dose: Not Given Documented by: Past medical history to include: Right-sided renal cell cancer with partial nephrectomy in 2015. Patient had serial follow-up optical 2 years ago. COPD, hyperlipidemia, seasonal ALLERGIES, depression Social history: Patient drinks 4-5 beers about 5 times a week. . 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 Family history: Reviewed, noncontributory to presentation Physical examination: VITAL SIGNS: 97.6, 66, 16, 120/75, 92% on 4 L GENERAL: Sitting in the edge of the bed, looking better, less short of breath EYES: Pupils equal. Conjunctiva normal. HEENT: External appearance of nose and ears normal, oral cavity grossly normal. NECK: JVD not raised; masses not palpable. HEART: First and second heart sounds are normal; no edema. LUNGS: Respiratory rate increased, decreased breaths sounds ABDOMEN: Soft, nontender, liver spleen not palpable, no masses palpable. PSYCH: Alert and oriented x3; mood and affect normal. INVESTIGATIONS, reviewed in the clinical context: WBC 12.4 hemoglobin 15 platelets 241 d-dimer 0.81 sodium 136 potassium 4.1 BUN 15 creatinine 0.7 to Troponin I less than 0.012 Coronavirus [PCR]: Not detected Urine Legionella antigen negative EKG tracing personally reviewed by me-normal sinus rhythm, 67/m Chest x-ray film personally reviewed by me-bilateral infiltrates. Pleural effusion. Chest CTA: Negative for PE. Extensive pneumonia and atelectasis with pleural effusion on the right lower lobe. Assessment and plan: -Severe pneumonia, suspect gram-negative organism, clinical respond IV cefepime 1 g every 8 hours IV fluids. Levaquin -Sepsis from pneumonia IV antibiotics, fluids -Acute COPD exacerbation in a current smoker DuoNeb 4 times a day, IV Solu-Medrol 40 mg every 12 -Chronic nicotine dependence, cigarettes smoker Nicotine patch -Chronic ALLERGIES Singlet 10 mg daily at bedtime -Hyperlipidemia Lipitor 10 mg daily -Right-sided pleuritic chest pain from underlying pneumonia: Improving Naproxen 250 mg 3 times a day-will DC later tonight Continue with IV cefepime, bronchodilators, steroids. Supportive care. Care was discussed with the patient and . Does not like hospital food. Have the some food from home. Increase activity.
[2021-01-14] MEDS: DULoxetine HCL 30 MG CAPSULE.DR PO SCH (21:19)
[2021-01-14] MEDS: MONTELUKAST 10 MG TAB PO SCH (21:19)
[2021-01-15] MEDS: CEFEPIME 1 GM in SODIUM CHLORIDE 0.9% 50 ML IVPB SCH ×2 (05:22→11:36)
[2021-01-15] MEDS: IPRATROPIUM-ALBUTEROL 3 ML NEB INHALATION SCH ×2 (07:39→11:40)
[2021-01-15] MEDS: BUDESONIDE 1 MG/2 ML NEBU INHALATION SCH (07:39)
[2021-01-15] MEDS: ATORVASTATIN 10 MG TAB PO SCH (08:54)
[2021-01-15] MEDS: NICOTINE 21MG/24HR PATCH TRANSDERM SCH (08:54)
[2021-01-15] MEDS: LEVOFLOXACIN 750 MG TAB PO SCH (08:54)
[2021-01-15] MEDS: FAMOTIDINE 20 MG TAB PO SCH (08:54)
[2021-01-15] MEDS: ENOXAPARIN 40 MG/0.4 ML SYRINGE SQ SCH (08:54)
[2021-01-15] MEDS: methylPREDNISolone SOD SUCCI 40 MG/ML 1 ML VIAL IV SCH (08:56)
--- NOTE | 2021-01-15 11:22 | P.PN ---
Subjective Progress Note Date: 01/15/21 60-year-old male patient presented emergency department because of extensive pain and spasm along the right side of the chest. This started approximately 2- 3 weeks ago and over the past 24 hours it was getting quite severe. He was also having fever with a temperature of 102.2 at home. He was having some chills. He was uncomfortable. He was getting short of breath and he started developing also some cough and. Most significant complaint was the spasm along the right side of the chest. He presented emergency department. Chest x-ray revealed a right lower lobe consolidation. Computed tomography scan of the chest was also done that showed right lower lobe consolidation along with some volume loss and some infiltration involving the right midlung. Consider bilobar pneumonia. He was given IV cefepime. He is currently on oxygen at 2 L. Hemodynamically stable. Note that the patient's CAT scan also shows some background emphysema. The patient is a chronic smoker and continues to smoke around one pack of cigarettes a day. No altered mentation. No hemoptysis. The pain is worse with deep breathing. Note previous history of any DVTs or pulmonary embolism. COVID-19 testing was negative. Does not receive his COVID-19 vaccination because of some history of ALLERGIES to hours tetanus shots. He has previous history of renal cell carcinoma and the patient has undergone partial n ephrectomy on the right. No history of any cardiac disease. No myocardial infarction. No previous history of DVT or pulmonary embolism. No diabetes mellitus. 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 The patient is seen today in 01/14/2021 in follow-up on the observation unit. He is currently sitting up in bed. Awake and alert in no acute distress. Breathing a bit easier today compared to yesterday. Still with some right-sided chest discomfort. Legionella antigen negative. Coronavirus negative. He remains on cefepime, Levaquin, Solu-Medrol, bronchodilators and Lovenox for DVT prophylaxis. Chest x-ray showing increased infiltrate at the right lower lobe. Some minimal atelectasis on the left. Blood culture reveals no growth to date. He did have a T-max of 100.6. Currently afebrile. He is on 4 L nasal cannula to maintain O2 saturations at 92%. On , the patient is feeling much better. Pleurisy has essentially recovered. He remains on Solu-Medrol. Remains on a combination of cefepime and Levaquin. No fever. No chills. On room air oxygen. Pulse ox is 94% on room air. No nausea. No vomiting or diarrhea. No abdominal pain. No altered mentation. Objective - Vital Signs Vital signs: Vital Signs Temp 97.8 F 01/15/21 04:29 Pulse 78 01/15/21 07:56 Resp 16 01/15/21 04:29 BP 134/82 01/15/21 04:29 Pulse Ox 94 L 01/15/21 04:29 Intake & Output 01/14/21 01/15/21 01/15/21 18:59 06:59 18:59 Intake Total 1000 1525 Balance 1000 1525 Intake: Intake, IV Titration 1000 525 Amount Cefepime 1 gm In Sodium 100 Chloride 0.9% 50 ml @ 12. 5 mls/hr IVPB Q8H [facility] Rx# :[id number] Sodium Chloride 0.9% 1, 900 525 000 ml @ 75 mls/hr IV . [id number] [facility] Rx#:[id number] Oral 1000 Other: Voiding Method Toilet - Exam GENERAL EXAM: Alert, pleasant 60-year-old gentleman, on room air oxygen, no signs of any respiratory distress at this time. HEAD: Normocephalic. EYES: Normal reaction of pupils, equal size. NOSE: Clear with pink turbinates. THROAT: No erythema or exudates. NECK: No masses, no JVD. CHEST: No chest wall deformity. LUNGS: Equal air entry with few scattered rhonchi, crackles in the bases right greater than left. There is much improvement in air entry on the right lung base compared to earlier evaluations. CVS: S1 and S2 normal with no audible murmur, regular rhythm. ABDOMEN: No hepatosplenomegaly, normal bowel sounds, no guarding or rigidity. SPINE: No scoliosis or deformity SKIN: No rashes CENTRAL NERVOUS SYSTEM: No focal deficits, tone is normal in all 4 extremities. EXTREMITIES: There is no peripheral edema. No clubbing, no cyanosis. Per ipheral pulses are intact. - Labs CBC & Chem 7: 01/12/21 13:07 01/12/21 13:07 Labs: Microbiology - Last 24 Hours (Table) 01/12/21 16:42 Blood Culture - Preliminary Blood No Growth after 48 hours 01/12/21 16:42 Blood Culture - Preliminary Blood No Growth after 48 hours Assessment and Plan Plan: 1 acute right lower lobe pneumonia, likely community-acquired, involving the right lower lobe and to some minimal extent the right middle lobe. Clinically the patient is improved. Oxygenation is improved. Today chest wall pain has recovered. Pleurisy has recovered. The patient has no significant complaints on today's evaluation. 2 acute pleuritic right-sided chest wall pain secondary to above recovered 3 acute hypoxic respiratory failure secondary to above, currently on room air oxygen 4 mild leukocytosis 5 COPD with some limited emphysematous changes as evident on the CAT scan of the chest 6 history of smoking around one pack of cigarette a day and the patient carries more than [id number] smoking history 7 history of renal cell carcinoma post partial nephrectomy on the right 8 hyperlipidemia Plan I evaluated the patient. The patient's condition is stable. Is clinically improving. I think it's reasonable to send him home today on Levaquin 750 mg for the next 7 days in addition to a prednisone burst taper. Absolutely not acceptable for him to smoke. He will need a follow-up chest x-ray in a week's time to evaluate the findings and hopefully he will achieve full recovery. COVID-19 testing was negative. Smoking cessation counseling was done. Legionella urine antigen was negative. Agree on discharging this patient home today. We'll discuss this with Dr. Hernandez.
[2021-01-15] MEDS: SODIUM CHLORIDE 0.9% 1,000 ML IV SCH (11:35)
[2021-01-15 13:40] VITALS: BP 101/62; PULSE 79; TEMP 98
--- NOTE | 2021-01-15 22:32 | P.DS ---
Providers Date of admission: 01/12/21 15:46 Expected date of discharge: 01/15/21 Attending physician: Marcelino Hernandez Consults: 01/12/21 15:46 Consult Physician Routine Consulting Provider: Kris Dunn Consult Reason/Comments: Pneumonia, effusion Do you want consulting provider notified?: Yes Primary care physician: Phani Decker [facility] Course: Chief Complaint: Chest pain This is a pleasant 60-year-old patient who follows with Dr. Decker. Chronic stable medical conditions include ALLERGIES, joint pains, hyperlipidemia, long- standing smoker. Patient for 4-5 weeks has been having right-sided chest pain. Initially it was intermittent. Progressively got worse became became more constant. Pleuritic in nature. Started having fever and chills cough bouts of perspiration. Decreased appetite. Tired rundown. Patient had not seen anybody in the meantime. Decided to finally come in. Also some wheezing. Chest tightness. His at the bedside. Otherwise patient is rather fairly active. [Patient in the past has had a tetanus shot and 10 hours after that he had developed a severe reaction.] Because of that he did not take the COVID vaccination. Admitted with pneumonia, pleurisy, acute COPD exacerbation,. Started on IV cefepime, DuoNeb, IV Solu-Medrol. Naproxen short course. 01/15/2021: Breathing much improved. No wheezing. Oral intake good. Pleuritic chest pain improved. Care was discussed in detail with the and the at the bedside. Questions answered. Cleared by pulmonary. Counseled about smoking Discussion and discharge planning more than 35 minutes Consultation: Dr. Wilburn from pulmonary Past medical history to include: Right-sided renal cell cancer with partial nephrectomy in 2014. Patient had serial follow-up optical 2 years ago. COPD, hyperlipidemia, seasonal ALLERGIES, depression Social history: Patient drinks 4-5 beers about 5 times a week. . 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 Family history: Reviewed, noncontributory to presentation Physical examination: VITAL SIGNS: 98, 79, 16, 10 1 x 62, 97% room air GENERAL: Sitting in the edge of the bed, comfortable EYES: Pupils equal. Conjunctiva normal. HEENT: External appearance of nose and ears normal, oral cavity grossly normal. NECK: JVD not raised; masses not palpable. HEART: First and second heart sounds are normal; no edema. LUNGS: Respiratory rate normal, decreased breaths sounds ABDOMEN: Soft, nontender, liver spleen not palpable, no masses palpable. PSYCH: Alert and oriented x3; mood and affect normal. INVESTIGATIONS, reviewed in the clinical context: Blood culture negative WBC 12.4 hemoglobin 15 platelets 241 d-dimer 0.81 sodium 136 potassium 4.1 BUN 15 creatinine 0.7 to Troponin I less than 0.012 Coronavirus [PCR]: Not detected Urine Legionella antigen negative EKG tracing personally reviewed by me-normal sinus rhythm, 67/m Chest x-ray film personally reviewed by me-bilateral infiltrates. Pleural effusion. Chest CTA: Negative for PE. Extensive pneumonia and atelectasis with pleural effusion on the right lower lobe. Assessment and plan: -Severe pneumonia, suspect gram-negative organism,: Improved IV cefepime 1 g every 8 hours IV fluids. Levaquin 750 mg for 7 days -Sepsis from pneumonia: Improved IV antibiotics, fluids -Acute COPD exacerbation in a current smoker DuoNeb 4 times a day, IV Solu-Medrol 40 mg every 12. Discharged on prednisone taper. Albuterol when necessary. -Chronic nicotine dependence, cigarettes smoker Nicotine patch -Chronic ALLERGIES Singlet 10 mg daily at bedtime -Hyperlipidemia Lipitor 10 mg daily -Right-sided pleuritic chest pain from underlying pneumonia: Improved Naproxen discontinued Disposition: Home Plan - Discharge Summary Discharge Rx Participant: No New Discharge Prescriptions: New Nicotine 21Mg/24Hr Patch [Habitrol] 1 patch TRANSDERM DAILY #30 patch predniSONE 10 mg PO DAILY #30 tab Albuterol Sulfate [Albuterol Sulfate Hfa] 2 puff PO Q6H #8.5 gm Levofloxacin [Levaquin] 750 mg PO DAILY #7 tab Continue Montelukast [Singulair] 10 mg PO HS DULoxetine HCL [Cymbalta] 30 mg PO HS Atorvastatin Calcium [Lipitor] 10 mg PO DAILY Discharge Medication List Atorvastatin Calcium [Lipitor] 10 mg PO DAILY 01/12/21 [History] DULoxetine HCL [Cymbalta] 30 mg PO HS 01/12/21 [History] Montelukast [Singulair] 10 mg PO HS 01/12/21 [History] Albuterol Sulfate [Albuterol Sulfate Hfa] 2 puff PO Q6H #8.5 gm 01/15/21 [Rx] Levofloxacin [Levaquin] 750 mg PO DAILY #7 tab 01/15/21 [Rx] Nicotine 21Mg/24Hr Patch [Habitrol] 1 patch TRANSDERM DAILY #30 patch 01/15/21 [Rx] predniSONE 10 mg PO DAILY #30 tab 01/15/21 [Rx] Follow up Appointment(s)/Referral(s): Phani Decker DO [Primary Care Provider] - 1-2 days Fredo Wilburn MD [STAFF PHYSICIAN] - 1 Week Patient Instructions/Handouts: Community Acquired Pneumonia (DC) Discharge Disposition: HOME SELF-CARE
[2021-01-16] MEDS ORDERED: predniSONE 20 MG TAB PO SCH (09:00)
== END 2021-01-15 14:05 | disposition home or self-care (01) | DRG 871 ==
LOC: EC 12:17 → 4SSUR 15:46 → 1SOBS 01-13 14:13
PROVIDERS: ADMIT Hospitalist; ATTEND Hospitalist
DX: A41.50 Gram-negative sepsis, unspecified (principal); J15.6 Pneumonia due to other Gram-negative bacteria; J96.01 Acute respiratory failure with hypoxia; J44.0 Chronic obstructive pulmonary disease with (acute) lower respiratory infection; J44.1 Chronic obstructive pulmonary disease with (acute) exacerbation; J91.8 Pleural effusion in other conditions classified elsewhere; J30.2 Other seasonal allergic rhinitis; F17.210 Nicotine dependence, cigarettes, uncomplicated; E78.5 Hyperlipidemia, unspecified; F32.9 Major depressive disorder, single episode, unspecified; Z20.822 Contact with and (suspected) exposure to COVID-19; Z79.899 Other long term (current) drug therapy; Z85.528 Personal history of other malignant neoplasm of kidney; Z90.5 Acquired absence of kidney; Z88.7 Allergy status to serum and vaccine
CPT/HCPCS: 36415; 71045; 71046; 71275; 80053; 83605; 83735; 84145; 84484; 85025; 85379; 85610; 85730; 87040; 87449; 87635; 93005; 94640; 94760; 96374; 96375; 99285

== ENCOUNTER 2021-02-18 09:32 | Inpatient (IN) | payer BC ==
[2021-02-18] MEDS ORDERED: ONDANSETRON 4 MG/2 ML VIAL IVP STA (11:38)
[2021-02-18] MEDS ORDERED: KETOROLAC 30 MG/ML 1 ML VIAL IVP STA (11:38)
--- NOTE | 2021-02-18 11:54 | ED ---
SOB HPI - General Chief Complaint: Shortness of Breath Stated Complaint: chest pain, pneumonia Time Seen by Provider: 02/18/21 11:22 Source: patient, RN notes reviewed, old records reviewed Mode of arrival: wheelchair Limitations: no limitations - History of Present Illness Initial Comments: Patient is a 60-year-old male history of hyperlipidemia, presenting to emergency Department with complaints of shortness of breath that increased last night. Is also complaining of bilateral rib pain, worse on the right than the left. He states it hurts to take a deep breath and hurts to move around. He was diagnosed with pleurisy and pneumonia last month, he went to see Dr. Wilburn 2 weeks ago and had a clean bowel health. He states he felt good then. States about 3 days ago is when his symptoms started with a small cough and the mild soreness of breath. He denies any fevers or chills, he is feeling nauseous, no vomiting or diarrhea, no abdominal pain. He states he feels like he has pleurisy again. He denies history of blood clots, is not on blood thinners. He has no further complaints. Patient's vital signs are stable upon arrival. - Related Data Home Medications Medication Instructions Recorded Confirmed Atorvastatin Calcium [Lipitor] 10 mg PO DAILY 01/12/21 02/18/21 DULoxetine HCL [Cymbalta] 30 mg PO HS 01/12/21 02/18/21 Montelukast [Singulair] 10 mg PO HS 01/12/21 02/18/21 Albuterol Sulfate [Albuterol 2 puff PO RT-Q6H 02/18/21 02/18/21 Sulfate Hfa] Allergies Allergy/AdvReac Type Severity Reaction Status Date / Time preservative multidose vial Allergy Hallucinati Uncoded 02/18/21 12:54 ons Review of Systems ROS Statement: Those systems with pertinent positive or pertinent negative responses have been documented in the HPI. ROS Other: All systems not noted in ROS Statement are negative. Past Medical History Past Medical History: Cancer, Hyperlipidemia Additional Past Medical History / Comment(s): seasonal allergies, kidney cancer History of Any Multi-Drug Resistant Organisms: None Reported Additional Past Surgical History / Comment(s): partial nephrectomy Past Anesthesia/Blood Transfusion Reactions: No Reported Reaction Past Psychological History: Depression Smoking Status: Current every day smoker Past Alcohol Use History: Daily Past Drug Use History: None Reported - Past Family History Mother History Unknown: Yes General Exam - General Exam Comments Initial Comments: GENERAL: Patient is well-developed and well-nourished. Patient is nontoxic and in no acute distress. HEAD: Atraumatic, normocephalic. EYES: Pupils equal round and reactive to light, extraocular movements intact, sclera anicteric, conjunctiva are normal. Eyelids were unremarkable. ENT: Nares patent, oropharynx clear without exudates. Moist mucous membranes. NECK: Normal range of motion, supple without lymphadenopathy or JVD. LUNGS: Unlabored respirations. Breath sounds clear to auscultation bilaterally and equal. No wheezes rales or rhonchi. HEART: Regular rate and rhythm without murmurs, rubs or gallops. ABDOMEN: Soft, nontender, normoactive bowel sounds. No guarding, no rebound. No masses appreciated. MUSCULOSKELETAL: Normal extremities with adequate strength and normal range of motion, no pitting or edema. No clubbing or cyanosis. NEUROLOGICAL: Patient is alert and oriented x 3. Motor and sensory are also intact. Normal speech, normal gait. PSYCH: Normal mood, normal affect. SKIN: Warm, Dry, normal turgor, no rashes or lesions noted. Limitations: no limitations Course Vital Signs 02/18/21 02/18/21 02/18/21 09:33 11:33 11:35 Temperature 98.3 F Pulse Rate 78 78 Respiratory 18 18 16 Rate Blood Pressure 151/89 111/58 O2 Sat by Pulse 97 95 Oximetry Medical Decision Making - Medical Decision Making patient is a 60-year-old male with history of hyperlipidemia, presenting for shortness of breath, chest discomfort over the past 2-3 days. He was treated for pneumonia and pleurisy last month, he states this feels similar. His vital signs are stable upon arrival, EKG showed no acute ST segment elevation but does show QT3 S1 change which is a change of previous EKG last month. Labs are showing an elevated d-dimer at 3.63 which is a change from last month, troponin is normal, rapid covid is negative. CBC is still pending. Chest x-ray showed patchy infiltrates right greater than left, appears to be improving. CTA of the chest for PE shows new bilateral PE without evidence for strain. Patient was started on high-dose heparin. Patient will be admitted, accepted by Dr. Rangel, with consult to pulmonary. case discussed with Dr. iJ. - Lab Data Result diagrams: 02/18/21 11:57 Lab Results 02/18/21 02/18/21 02/18/21 Range/Units 11:57 11:57 11:57 PT (9.0-12.0) sec INR (<1.2) APTT (22.0-30.0) sec D-Dimer (<0.60) mg/L FEU Sodium 136 L (137-145) mmol/L Potassium 4.3 (3.5-5.1) mmol/L Chloride 102 (98-107) mmol/L Carbon Dioxide 25 (22-30) mmol/L Anion Gap 9 mmol/L BUN 15 (9-20) mg/dL Creatinine 0.92 (0.66-1.25) mg/dL Est GFR (CKD-EPI)AfAm >90 (>60 ml/min/1.73 sqM) Est GFR (CKD-EPI)NonAf 89 (>60 ml/min/1.73 sqM) Glucose 130 H (74-99) mg/dL Plasma Lactic Acid Yandel 1.8 (0.7-2.0) mmol/L Calcium 9.4 (8.4-10.2) mg/dL Magnesium 1.7 (1.6-2.3) mg/dL Total Bilirubin 0.8 (0.2-1.3) mg/dL AST 25 (17-59) U/L ALT 40 (4-49) U/L Alkaline Phosphatase 83 (38-126) U/L Troponin I <0.012 (0.000-0.034) ng/mL NT-Pro-B Natriuret Pep pg/mL Total Protein 7.0 (6.3-8.2) g/dL Albumin 4.1 (3.5-5.0) g/dL Coronavirus (PCR) (Not Detectd) 02/18/21 02/18/21 02/18/21 Range/Units 11:57 11:57 13:25 PT 11.0 (9.0-12.0) sec INR 1.0 (<1.2) APTT 18.9 L (22.0-30.0) sec D-Dimer 3.63 H (<0.60) mg/L FEU Sodium (137-145) mmol/L Potassium (3.5-5.1) mmol/L Chloride (98-107) mmol/L Carbon Dioxide (22-30) mmol/L Anion Gap mmol/L BUN (9-20) mg/dL Creatinine (0.66-1.25) mg/dL Est GFR (CKD-EPI)AfAm (>60 ml/min/1.73 sqM) Est GFR (CKD-EPI)NonAf (>60 ml/min/1.73 sqM) Glucose (74-99) mg/dL Plasma Lactic Acid Yandel (0.7-2.0) mmol/L Calcium (8.4-10.2) mg/dL Magnesium (1.6-2.3) mg/dL Total Bilirubin (0.2-1.3) mg/dL AST (17-59) U/L ALT (4-49) U/L Alkaline Phosphatase (38-126) U/L Troponin I (0.000-0.034) ng/mL NT-Pro-B Natriuret Pep 33 pg/mL Total Protein (6.3-8.2) g/dL Albumin (3.5-5.0) g/dL Coronavirus (PCR) Not Detected (Not Detectd) - EKG Data EKG Comments: normal sinus rhythm, minimal voltage criteria for LVH, may be normal variant, no signs of acute ST segment elevation. There is a QT3/S1 change that is different from his previous on 01/12/2021. Ventricular rate 71, MO interval 158, QT 382. Critical Care Time Critical Care Time: Yes Total Critical Care Time: 37 (patient came in with shortness of breath, chest pains, diagnosed with pneumonia last month. Vital signs are stable, d-dimer is elevated at 3.5, CTA of the chest reveals bilateral PEs patient was started on high-dose heparin. He will be admitted.) Disposition Clinical Impression: Bilateral pulmonary embolism Disposition: ADMITTED IP TO THIS HOSP Condition: Stable Referrals: Phani Decker DO [Primary Care Provider] - 1-2 days Decision Date: 02/18/21 Decision Time: 15:09
[2021-02-18 12:18] LABS: ALT 40 U/L (4-49); AST 25 U/L (17-59); African American GFR (CKD) >90 (>60 ml/min/1.73 sqM); Albumin 4.1 g/dL (3.5-5.0); Alkaline Phosphatase 83 U/L (38-126); Anion Gap 9 mmol/L; Blood Urea Nitrogen 15 mg/dL (9-20); Calcium 9.4 mg/dL (8.4-10.2); Carbon Dioxide 25 mmol/L (22-30); Chloride 102 mmol/L (98-107); Glucose 130 mg/dL (74-99); Magnesium 1.7 mg/dL (1.6-2.3); Non-African American GFR(CKD) 89 (>60 ml/min/1.73 sqM); Potassium 4.3 mmol/L (3.5-5.1); Sodium 136 mmol/L (137-145); Total Bilirubin 0.8 mg/dL (0.2-1.3)
--- NOTE | 2021-02-18 12:21 | XR ---
EXAMINATION TYPE: XR chest 2V DATE OF EXAM: 02/18/2021 HISTORY: Shortness of breath. COMPARISON: 01/14/2021 TECHNIQUE: Single view of the chest is submitted. FINDINGS: Demonstrated are scattered senescent parenchymal change. Patchy basilar infiltrates right greater than left persist although appear to be improving. The heart is stable. Hilar and mediastinal structures are within normal limits. Degenerative changes are seen of the dorsal spine. IMPRESSION: 1. Patchy basilar infiltrates right greater than left persist although appear to be improving.
[2021-02-18 14:00] LABS: Partial Thromboplastin Time 18.9 sec (22.0-30.0)
[2021-02-18] MEDS ORDERED: HEPARIN SODIUM 1,000 UN/ML (10ML VL) IV ONE (14:43)
[2021-02-18] MEDS ORDERED: HEPARIN SODIUM 1,000 UN/ML (10ML VL) IV PRN (14:43)
--- NOTE | 2021-02-18 14:49 | CT ---
EXAMINATION TYPE: CT chest angio for PE DATE OF EXAM: 02/18/2021 COMPARISON: CT chest January 12, 2021 HISTORY: PE CT DLP: 494.9 mGycm. Automated Exposure Control for Dose Reduction was Utilized. CONTRAST: CTA scan of the thorax is performed with IV Contrast, patient injected with 100 mL of Isovue 370, pul monary embolism protocol. MIP Images are created on CT scanner and reviewed. FINDINGS: LUNGS: Motion artifact degradation is present. Mild underlying emphysematous change redemonstrated. P osterior dependent groundglass opacities along with focal atelectasis and/or less likely acute consol idations are more prominent on current study versus prior study. Interval resolution of focal triangu lar consolidation or atelectasis in the right middle lobe on prior study. Mild linear scarring at thi s level is now present. MEDIASTINUM: There is satisfactory enhancement of the pulmonary artery and its branches, there are bi lateral pulmonary emboli filling bilateral lobar branches with segmental and subsegmental extension. There is segmental and subsegmental extension in the lingula on current study. No cardiomegaly or pe ricardial effusion is seen. No new right ventricular dilatation OTHER: Slightly low dense thickening through both adrenal glands. Slight underlying scoliotic curvat ure. Moderate multilevel spurring. IMPRESSION: There is new bilateral pulmonary emboli without CT evidence for the strain. Worsening bib asilar posterior atelectasis noted on current study. Case discussed with ordering ER physician via telephone at time of dictation.
[2021-02-18] MEDS ORDERED: ONDANSETRON 4 MG/2 ML VIAL IVP PRN (15:26)
[2021-02-18] MEDS ORDERED: NALOXONE 0.4 MG/ML 1 ML VIAL IV PRN (15:26)
[2021-02-18 15:32] LABS: Basophils % (A) 0 %; Eosinophils # (A) 0.1 k/uL (0-0.7); Eosinophils % (A) 1 %; HCT 45.2 % (39.0-53.0); HGB 15.1 gm/dL (13.0-17.5); Lymphocytes % (A) 8 %; MCH 33.6 pg (25.0-35.0); MCHC 33.3 g/dL (31.0-37.0); MCV 100.9 fL (80.0-100.0); Mean Platelet Volume 7.5; Monocytes # (A) 0.4 k/uL (0-1.0); Monocytes % (A) 3 %; Neutrophils # (A) 11.6 k/uL (1.3-7.7); Neutrophils % (A) 87 %; Platelet Count 201 k/uL (150-450); RBC 4.48 m/uL (4.30-5.90); RDW 12.3 % (11.5-15.5); WBC 13.3 k/uL (3.8-10.6)
[2021-02-18] MEDS: HEPARIN SOD,PORK IN 0.45% NACL 25,000 UNIT in 0.45% NACL 1 250ML.BAG IV SCH (15:45)
[2021-02-18] MEDS ORDERED: MORPHINE SULFATE 2 MG/ML SYRINGE IVP ONE (16:08)
[2021-02-18] MEDS ORDERED: HYDROmorphone 0.5 MG/0.5 ML SYRINGE IVP PRN (18:53)
[2021-02-18] MEDS ORDERED: TEMAZEPAM 15 MG CAP PO PRN (18:53)
[2021-02-18] MEDS ORDERED: LORazepam 0.5 MG TAB PO PRN (18:53)
[2021-02-18] MEDS ORDERED: IPRATROPIUM-ALBUTEROL 3 ML NEB INHALATION PRN (18:53)
--- NOTE | 2021-02-18 20:23 | HP ---
HISTORY AND PHYSICAL DATE OF SERVICE: 02/18/2021. CHIEF COMPLAINT: Shortness of breath. HISTORY OF PRESENT ILLNESS: This 60-year-old gentleman with a past medical history of multiple medical issues, including hyperlipidemia, seasonal allergies, kidney cancer being followed by Dr. Decker in the outpatient setting, was recently admitted with pneumonia to [facility]. The patient also had COPD acute exacerbation. Patient has severe pneumonia and gram-negative pneumonia suspected. Patient treated with IV cefepime. The patient improved significantly and the patient was discharged. Dr. Wilburn saw the patient during the hospitalization. Currently the patient is complaining of significant chest pains this morning. The patient also had some shortness of breath. The pain was on the bilateral lateral part in the lower part and the patient contacted Dr. Wilburn's office and the patient came to [facility] and was admitted to the hospital for further evaluation and treatment. The pulse ox is well maintained, but the patient white count is elevated. D-dimer was found to be 3.063. The patient also had a CT angio of the chest which I reviewed personally which showed new bilateral pulmonary emboli without CT evidence of any strain, worsening bibasilar possibly atelectasis also noted. The patient is admitted for further evaluation and treatment. There is no history of fever, rigors. No history of headache, loss of consciousness, seizures at this time. The patient is complaining of chest pain as mentioned earlier. The patient also running some fever. Patient complaining of Charley horse of both legs for the last several days. PAST MEDICAL HISTORY: History of recent pneumonia, history of COPD, hyperlipidemia, seasonal allergies, kidney cancer. MEDICATIONS: Prior to admission include home medications are: Singulair, Cymbalta, Lipitor, albuterol, doses are reviewed. ALLERGIES: PRESERVATIVES. FAMILY HISTORY: No history of heart disease or strokes in the family. SOCIAL HISTORY: History of smoking. History of daily alcohol. REVIEW OF SYSTEMS: ENT: No diminished vision. No diminished hearing. CARDIOVASCULAR system: No angina or palpitations. RESPIRATORY: As mentioned earlier. GI: No nausea or vomiting. : No dysuria. NERVOUS System: No numbness or weakness. ALLERGY/IMMUNOLOGY: No asthma or hayfever. MUSCULOSKELETAL as mentioned earlier. HEMATOLOGY/ONCOLOGY: As mentioned earlier. ENDOCRINE: No history of diabetes. CONSTITUTIONAL: As mentioned earlier. DERMATOLOGY negative. RHEUMATOLOGY: Negative. PSYCHIATRIC: As mentioned earlier. PHYSICAL EXAMINATION: Alert and oriented times three. Pulse is 100, blood pressure 140/72, respiration 18. Temperature 98.3, pulse ox 98% on 2 L. HEENT is conjunctivae normal. Oral mucosa moist. NECK: No jugular venous distention. CARDIOVASCULAR: S1, S2. RESPIRATION: Breath sounds diminished in the bases. Scattered rhonchi and crackles. ABDOMEN: Soft, nontender. No mass palpable. LEGS: No edema. Minimal swelling present. Pulses felt normally. NERVOUS SYSTEM: Higher functions as mentioned earlier. Moves all four limbs. No focal deficits. LYMPHATICS: No lymph nodes palpable in the neck, axillae or groin. SKIN: No ulcers, no rashes. No bleeding. JOINTS: No active deforming arthropathy. LABS: WBC 13.2, hemoglobin 15.2. Other labs are noted. ASSESSMENT: 1. Shortness of breath, bilateral acute pulmonary embolism. 2. History of recent pneumonia with chronic obstructive pulmonary disease exacerbation. 3. Increased WBC. 4. Increased MCV. 5. S1, Q3 T3 pattern on the EKG. 6. Elevated D-dimer. 7. Hyponatremia. 8. Increased random blood sugar. 9. History of nicotine dependence. 10.History of EtOH. 11.History of partial nephrectomy for kidney cancer. 12.History of hyperlipidemia. 13.History of seasonal allergies. 14.History of nicotine dependence. 15.Obesity with body mass 30.9. 16.FULL CODE. RECOMMENDATIONS AND DISCUSSION: This 60-year-old gentleman who presented with multiple complex medical issues. We will monitor the patient closely, continue the current medications. Symptomatic treatment. I would recommend IV heparin. Consult Hematology/Oncology and Pulmonary. Otherwise, I would also recommend provide symptomatic treatment. The patient might require further workup for coagulation for this unprovoked PE. I would also recommend ultrasound of the legs to rule out the possibility of DVT. Prognosis guarded because of multiple complex medical issues and further recommendations to follow. A copy of dictation being forwarded to Dr. Decker who is the primary physician. The EKG showed S1 Q3 T3 pattern. MMODL / IJN: [id number] /
[2021-02-18] MEDS: HYDROcodone/APAP 5-325MG 1 EACH TAB PO PRN (20:26)
--- NOTE | 2021-02-18 20:54 | US ---
EXAMINATION TYPE: US venous doppler duplex LE DATE OF EXAM: 02/18/2021 8:07 PM COMPARISON: NONE CLINICAL HISTORY: dvt. Bilateral PE. Pt is on Heparin. SIDE PERFORMED: Bilateral TECHNIQUE: The lower extremity deep venous system is examined utilizing real time linear array sonog narciso with graded compression, doppler sonography and color-flow sonography. VESSELS IMAGED: Common Femoral Vein Deep Femoral Vein Greater Saphenous Vein * Femoral Vein Popliteal Vein Small Saphenous Vein * Proximal Calf Veins (* superficial vessels) Right Leg: Internal echoes seen within the popliteal and prox calf veins. These vessels do not appea r to compress and show a color defect. Left Leg: Internal echoes seen within the popliteal vein. Popliteal vein appears to compress incompl etely and show a color defect. IMPRESSION: There is evidence of a bilateral leg chronic deep vein thrombosis.
[2021-02-18 21:02] LABS: Appearance,Urine Clear (Clear); Bilirubin,Urine Negative (Negative); Blood,Urine Small (Negative); Color,Urine Light Yellow; Glucose,Urine (UA) Negative (Negative); Ketones,Urine Negative (Negative); Leukocyte Esterase,Urine Negative (Negative); Nitrite,Urine Negative (Negative); PH, Urine 5.5 (5.0-8.0); Protein,Urine Negative (Negative); RBC,Urine 1 /hpf (0-5); Specific Gravity,Urine 1.016 (1.001-1.035); Urobilinogen,Urine <2.0 mg/dL (<2.0)
[2021-02-18] MEDS: IPRATROPIUM-ALBUTEROL 3 ML NEB INHALATION SCH (21:04)
[2021-02-18] MEDS: NICOTINE 14MG/24HR PATCH TRANSDERM SCH (21:29)
[2021-02-18] MEDS: DULoxetine HCL 30 MG CAPSULE.DR PO SCH (21:29)
[2021-02-18] MEDS: MONTELUKAST 10 MG TAB PO SCH (21:29)
[2021-02-18] MEDS: ACETAMINOPHEN TAB 325 MG TAB PO PRN (21:36)
[2021-02-19] MEDS: HYDROcodone/APAP 5-325MG 1 EACH TAB PO PRN ×3 (06:49→19:24)
[2021-02-19] MEDS: HEPARIN SOD,PORK IN 0.45% NACL 25,000 UNIT in 0.45% NACL 1 250ML.BAG IV SCH ×2 (06:51→23:46)
[2021-02-19 07:15] LABS: Basophils % (A) 0 %; Eosinophils # (A) 0.2 k/uL (0-0.7); Eosinophils % (A) 2 %; HCT 41.6 % (39.0-53.0); Lymphocytes # (A) 1.2 k/uL (1.0-4.8); Lymphocytes % (A) 12 %; MCH 33.7 pg (25.0-35.0); MCHC 33.7 g/dL (31.0-37.0); Mean Platelet Volume 7.5; Monocytes # (A) 0.6 k/uL (0-1.0); Monocytes % (A) 6 %; Neutrophils # (A) 7.9 k/uL (1.3-7.7); Neutrophils % (A) 79 %; Platelet Count 192 k/uL (150-450); RBC 4.16 m/uL (4.30-5.90); RDW 12.4 % (11.5-15.5)
[2021-02-19] MEDS: IPRATROPIUM-ALBUTEROL 3 ML NEB INHALATION SCH ×3 (08:03→20:45)
[2021-02-19 08:53] LABS: African American GFR (CKD) >90 (>60 ml/min/1.73 sqM); Anion Gap 7 mmol/L; Blood Urea Nitrogen 13 mg/dL (9-20); Calcium 8.8 mg/dL (8.4-10.2); Carbon Dioxide 23 mmol/L (22-30); Chloride 106 mmol/L (98-107); Glucose 113 mg/dL (74-99); Non-African American GFR(CKD) >90 (>60 ml/min/1.73 sqM); Potassium 4.1 mmol/L (3.5-5.1); Sodium 136 mmol/L (137-145)
[2021-02-19] MEDS: PANTOPRAZOLE 40 MG TABLET PO SCH (09:29)
[2021-02-19] MEDS: ATORVASTATIN 10 MG TAB PO SCH (09:29)
[2021-02-19] MEDS: NICOTINE 14MG/24HR PATCH TRANSDERM SCH (09:30)
--- NOTE | 2021-02-19 10:30 | P.CNPUL ---
History of Present Illness Consult date: 02/19/21 Requesting physician: David Rangel Reason for consult: dyspnea, abnormal CXR/CT Chief complaint: Chest pain, shortness of breath History of present illness: This is a very pleasant 60-year-old gentleman who follows with Dr. Decker as his primary care provider. He has a history of hyperlipidemia, depression, COPD, renal cell carcinoma with partial nephrectomy on the right, chronic and ongoing tobacco dependence. He was recently discharged from here 01/15/2021 after developing acute community-acquired right lung pneumonia. It involved the right middle and right lower lobes. CT scan at that time revealed evidence of COPD no pulmonary embolism. He presented here again to the emergency room yesterday with complaints of chest pain, pain on inhalation no cough and congestion. They have been going on approximately [address] angiogram revealed new bilateral pulmonary emboli without CT evidence for right heart strain. There is worsening bibasilar posterior atelectasis. Doppler of the lower extremities revealed chronic DVTs bilaterally. He's been initiated on a heparin drip. White count 10.0. Hemoglobin 14.0. Sodium 136. Potassium 4.1. Creatinine 0.70. D-dimer 3.63. He is seen today in consultation in the emergency department. He is currently sitting up in a stretcher. Awake and alert in no acute distress. He is maintaining good O2 saturations in the 90s on 2 L/m per nasal cannula. No worsening shortness of breath cough or congestion. Some of the pain on inhalation has subsided. He denied any long travel. No trauma to the lower extremities. No recent surgery. Possibly some sedentary lifestyle following his recent admission. Review of Systems REVIEW OF SYSTEMS: CONSTITUTIONAL: Denies any recent significant weight loss or weight gain. EYES: Denies change in vision. EARS, NOSE, MOUTH, THROAT: Denies headaches, denies sore throat. CARDIOVASCULAR: Positive for pleuritic type chest pain, no palpitations or syncopal episodes. RESPIRATORY: Positive for shortness of breath, cough, congestion no hemoptysis. GASTROINTESTINAL: Denies change in appetite, denies abdominal pain GENITOURINARY: Denies hematuria, denies infections. MUSKULOSKELETAL: Denies pain, denies swelling. INTEGUMENTARY: Denies rash, denies eczema. NEUROLOGICAL: Denies recent memory loss, no recent seizure activity. PSYCHIATRIC: Denies anxiety, denies depression. HEMATOLOGIC/LYMPHATIC: Denies anemia, denies enlarged lymph nodes. Past Medical History Past Medical History: Cancer, Hyperlipidemia Additional Past Medical History / Comment(s): seasonal allergies, kidney cancer History of Any Multi-Drug Resistant Organisms: None Reported Additional Past Surgical History / Comment(s): partial nephrectomy Past Anesthesia/Blood Transfusion Reactions: No Reported Reaction Past Psychological History: Depression Smoking Status: Current every day smoker Past Alcohol Use History: Daily Past Drug Use History: None Reported - Past Family History Mother History Unknown: Yes Medications and Allergies Home Medications Medication Instructions Recorded Confirmed Type Atorvastatin Calcium [Lipitor] 10 mg PO DAILY 01/12/21 02/18/21 History DULoxetine HCL [Cymbalta] 30 mg PO HS 01/12/21 02/18/21 History Montelukast [Singulair] 10 mg PO HS 01/12/21 02/18/21 History Albuterol Sulfate [Albuterol 2 puff PO RT-Q6H 02/18/21 02/18/21 History Sulfate Hfa] Allergies Allergy/AdvReac Type Severity Reaction Status Date / Time preservative multidose vial Allergy Hallucinati Uncoded 02/18/21 12:54 ons Physical Exam Vitals: Vital Signs Temp Pulse Pulse Resp BP BP Pulse Ox 02/19/21 09:17 97.9 F 84 24 129/75 94 L 02/19/21 08:16 72 02/19/21 08:04 76 02/19/21 02:41 75 14 141/83 94 L 02/18/21 20:30 77 18 145/73 02/18/21 17:51 102 H 16 150/90 97 02/18/21 16:19 110 H 18 158/82 98 02/18/21 15:21 102 H 18 142/75 98 02/18/21 12:50 92 18 126/76 98 02/18/21 11:35 16 02/18/21 11:33 78 18 111/58 95 Intake and Output 02/18/21 02/19/21 02/19/21 22:59 06:59 14:59 Intake Total 250.000 Output Total 500 Balance -500 250.000 Intake: Intake, IV Titration 250.000 Amount Heparin Sod,Pork in 0.45% 250.000 NaCl 25,000 unit In 0.45 % NaCl 1 250ml.bag @ 18 UNITS/KG/HR 17.554 mls/hr IV .[id number] [facility] Rx#: [id number] Output: Urine 500 Other: Voiding Method Urinal Weight 97.522 kg GENERAL EXAM: Alert, pleasant 60-year-old gentleman, on 2 L nasal cannula, fairly comfortable in no apparent distress. HEAD: Normocephalic. EYES: Normal reaction of pupils, equal size. NOSE: Clear with pink turbinates. THROAT: No erythema or exudates. NECK: No masses, no JVD. CHEST: No chest wall deformity. LUNGS: Equal air entry with crackles in the right lung base. CVS: S1 and S2 normal with no audible murmur, regular rhythm. ABDOMEN: No hepatosplenomegaly, normal bowel sounds, no guarding or rigidity. SPINE: No scoliosis or deformity SKIN: No rashes CENTRAL NERVOUS SYSTEM: No focal deficits, tone is normal in all 4 extremities. EXTREMITIES: There is no peripheral edema. No clubbing, no cyanosis. Peripheral pulses are intact. Results - Laboratory Findings CBC and BMP: 02/19/21 06:27 02/19/21 06:27 PT/INR, D-dimer PT 11.0 sec (9.0-12.0) 02/18/21 13:25 INR 1.0 (<1.2) 02/18/21 13:25 D-Dimer 3.63 mg/L FEU (<0.60) H 02/18/21 13:25 Abnormal lab findings: Abnormal Labs 02/18/21 02/18/21 02/18/21 11:57 13:25 15:10 WBC 13.3 H RBC MCV 100.9 H Neutrophils # 11.6 H APTT 18.9 L D-Dimer 3.63 H Sodium 136 L Glucose 130 H Urine Blood 02/18/21 02/18/21 02/19/21 20:38 21:23 06:27 WBC RBC 4.16 L MCV Neutrophils # 7.9 H APTT 68.4 H D-Dimer Sodium Glucose Urine Blood Small H 02/19/21 02/19/21 06:27 06:27 WBC RBC MCV Neutrophils # APTT 53.6 H D-Dimer Sodium 136 L Glucose 113 H Urine Blood - Diagnostic Findings CT scan - chest: image reviewed Assessment and Plan Assessment: 1 Acute hypoxemic respiratory failure secondary to an acute bilateral pulmonary emboli, unprovoked. 2 Chronic bilateral lower extremity DVTs 3 Recent admission in December 2020 for an acute community-acquired right lung pneumonia 4 Chronic and ongoing tobacco dependence 5 Chronic obstructive pulmonary disease 6 Hyperlipidemia 7 History of depression 8 Daily alcohol use. Plan: The patient was seen and evaluated by Dr. Dunn CAT scan labs reviewed PE appears unprovoked Hematology consult Continue heparin drip for now Continue bronchodilators Titrate the FiO2 as tolerated Educated regarding importance of complete smoking cessation NicoDerm patch has been ordered We will continue to follow and make further recommendations based on his clinical status I, the cosigning physician, performed a history & physical examination of the patient. Lungs sounds echoes in the right lung base. Maintaining good O2 saturations in the 90s on 2 L/m per nasal cannula. I discussed the assessment and plan of care with my nurse practitioner, Karla Cain. I attest to the above consultation as dictated by her. Time with Patient: Greater than 30
--- NOTE | 2021-02-19 11:32 | ECHOF ---
Referral Reason:pe- rv strain MEASUREMENTS -------- HEIGHT: 177.8 cm WEIGHT: 97.5 kg BP: 142/83 RVIDd: 3.4 cm (< 3.3) IVSd: 1.4 cm (0.6 - 1.1) LVIDd: 3.9 cm (3.9 - 5.3) LVPWd: 1.2 cm (0.6 - 1.1) IVSs: 1.5 cm LVIDs: 2.4 cm LVPWs: 1.7 cm LA Diam: 3.5 cm (2.7 - 3.8) LAESV Index (A-L): 27.63 ml/m Ao Diam: 3.7 cm (2.0 - 3.7) AV Cusp: 2.4 cm (1.5 - 2.6) MV EXCURSION: 17.354 mm (> 18.000) MV EF SLOPE: 125 mm/s (70 - 150) EPSS: 0.5 cm MV E Eagle: 0.73 m/s MV DecT: 283 ms MV A Eagle: 0.79 m/s MV E/A Ratio: 0.92 FINDINGS -------- Sinus rhythm. This was a technically good study. The left ventricular size is normal. There is moderate concentric left ventricular hypertrophy. O verall left ventricular systolic function is normal with, an EF between 60 - 65 %. The right ventricle is mildly enlarged. Normal LA size by volume 22+/-6 ml/m2. The right atrium is normal in size. Interatrial and interventricular septum intact. The aortic valve is trileaflet, and appears structurally normal. No aortic stenosis or regurgitation. The mitral valve is normal. The tricuspid valve appears structurally normal. Unable to estimate RVSP due to inadequate TR jet s pectral doppler profile. Trace/mild (physiologic) pulmonic regurgitation. The aortic root size is normal. IVC Not well visulized. There is no pericardial effusion. CONCLUSIONS -------- 1. The left ventricular size is normal. 2. There is moderate concentric left ventricular hypertrophy. 3. Overall left ventricular systolic function is normal with, an EF between 60 - 65 %. 4. The right ventricle is mildly enlarged. 5. The aortic valve is trileaflet, and appears structurally normal. No aortic stenosis or regurgitati on. 6. Trace/mild (physiologic) pulmonic regurgitation. 7. There is no pericardial effusion. ELECTROMECHANICAL TECHNOLOGIST: Alina Brown RDCS
[2021-02-19] MEDS ORDERED: IOPAMIDOL CONTRAST (ORAL USE) VIAL PO PRN (12:37)
--- NOTE | 2021-02-19 12:55 | P.CONS ---
History of Present Illness - Reason for Consult Consult date: 02/19/21 Pulm Emb Requesting physician: David Rangel - Chief Complaint Shortness of Breath - History of Present Illness Mr. Emanuel is a pleasant male patient seen in Emergency department this morning after being asked to further evaluate his new bilateral Pulmonary Emboli. Review of Systems All systems: negative Constitutional: Reports as per HPI Past Medical History Past Medical History: Cancer, Hyperlipidemia Additional Past Medical History / Comment(s): seasonal allergies, kidney cancer History of Any Multi-Drug Resistant Organisms: None Reported Additional Past Surgical History / Comment(s): partial nephrectomy Past Anesthesia/Blood Transfusion Reactions: No Reported Reaction Past Psychological History: Depression Smoking Status: Current every day smoker Past Alcohol Use History: Daily Past Drug Use History: None Reported - Past Family History Mother History Unknown: Yes Medications and Allergies Home Medications Medication Instructions Recorded Confirmed Type Atorvastatin Calcium [Lipitor] 10 mg PO DAILY 01/12/21 02/18/21 History DULoxetine HCL [Cymbalta] 30 mg PO HS 01/12/21 02/18/21 History Montelukast [Singulair] 10 mg PO HS 01/12/21 02/18/21 History Albuterol Sulfate [Albuterol 2 puff PO RT-Q6H 02/18/21 02/18/21 History Sulfate Hfa] Allergies Allergy/AdvReac Type Severity Reaction Status Date / Time preservative multidose vial Allergy Hallucinati Uncoded 02/18/21 12:54 ons Physical Exam Vitals: Vital Signs Temp Pulse Pulse Resp BP BP Pulse Ox 02/19/21 08:16 72 02/19/21 08:04 76 02/19/21 02:41 75 14 141/83 94 L 02/18/21 20:30 77 18 145/73 02/18/21 17:51 102 H 16 150/90 97 02/18/21 16:19 110 H 18 158/82 98 02/18/21 15:21 102 H 18 142/75 98 02/18/21 12:50 92 18 126/76 98 02/18/21 11:35 16 02/18/21 11:33 78 18 111/58 95 02/18/21 09:33 98.3 F 78 18 151/89 97 Intake and Output 02/18/21 02/19/21 02/19/21 22:59 06:59 14:59 Intake Total 250.000 Output Total 500 Balance -500 250.000 Intake: Intake, IV Titration 250.000 Amount Heparin Sod,Pork in 0.45% 250.000 NaCl 25,000 unit In 0.45 % NaCl 1 250ml.bag @ 18 UNITS/KG/HR 17.554 mls/hr IV .[id number] [facility] Rx#: [id number] Output: Urine 500 Other: Weight 97.522 kg - Constitutional General appearance: cooperative, no acute distress - EENT Eyes: EOMI ENT: NA/AT - Respiratory Respiratory: bilateral: CTA - Cardiovascular Rhythm: regular - Gastrointestinal General gastrointestinal: soft - Integumentary Integumentary: pale - Neurologic Neurologic: CNII-XII intact - Musculoskeletal Musculoskeletal: generalized weakness - Psychiatric Psychiatric: A&O x's 3, appropriate affect, intact judgment & insight Results CBC & Chem 7: 02/19/21 06:27 02/19/21 06:27 Labs: Abnormal Lab Results - Last 24 Hours (Table) 02/18/21 02/18/21 02/18/21 Range/Units 11:57 13:25 15:10 WBC 13.3 H (3.8-10.6) k/uL RBC (4.30-5.90) m/uL MCV 100.9 H (80.0-100.0) fL Neutrophils # 11.6 H (1.3-7.7) k/uL APTT 18.9 L (22.0-30.0) sec D-Dimer 3.63 H (<0.60) mg/L FEU Sodium 136 L (137-145) mmol/L Glucose 130 H (74-99) mg/dL Urine Blood (Negative) 02/18/21 02/18/21 02/19/21 Range/Units 20:38 21:23 06:27 WBC (3.8-10.6) k/uL RBC 4.16 L (4.30-5.90) m/uL MCV (80.0-100.0) fL Neutrophils # 7.9 H (1.3-7.7) k/uL APTT 68.4 H (22.0-30.0) sec D-Dimer (<0.60) mg/L FEU Sodium (137-145) mmol/L Glucose (74-99) mg/dL Urine Blood Small H (Negative) 02/19/21 Range/Units 06:27 WBC (3.8-10.6) k/uL RBC (4.30-5.90) m/uL MCV (80.0-100.0) fL Neutrophils # (1.3-7.7) k/uL APTT 53.6 H (22.0-30.0) sec D-Dimer (<0.60) mg/L FEU Sodium (137-145) mmol/L Glucose (74-99) mg/dL Urine Blood (Negative) CT scan - chest: report reviewed Venous US: report reviewed Assessment and Plan (1) Bilateral pulmonary embolism Current Visit: Yes Status: Acute Code(s): I26.99 - OTHER PULMONARY EMBOLISM WITHOUT ACUTE COR PULMONALE SNOMED Code(s): 55800854 (2) Parapneumonic effusion Current Visit: No Status: Acute Code(s): J18.9 - PNEUMONIA, UNSPECIFIED ORGANISM; J91.8 - PLEURAL EFFUSION IN OTHER CONDITIONS CLASSIFIED ELSEWHERE SNOMED Code(s): 50937049 (3) Pneumonia Current Visit: No Status: Acute Code(s): J18.9 - PNEUMONIA, UNSPECIFIED ORGANISM SNOMED Code(s): 010265283 (4) History of renal cell carcinoma Current Visit: Yes Status: Acute Code(s): Z85.528 - PERSONAL HISTORY OF OTHER MALIGNANT NEOPLASM OF KIDNEY SNOMED Code(s): 304497575 Plan: With recent hospitalization for pneumonia we will further work-up an antiphospholipid syndrome, labs placed He also has history of Renal Cell Carcinoma: Status post partial right nephrectomy therefore further evaluation of recurrent malignancy is warranted: CT abdomen and Pelvis ordered. Physician Attest: I have completed the full history and physical and agree with above dictation, dictated as a ascribe
--- NOTE | 2021-02-19 15:13 | CT ---
EXAMINATION TYPE: CT abdomen pelvis w con DATE OF EXAM: 02/19/2021 COMPARISON: None HISTORY: Generalized pain CT DLP: 1480.8 mGycm CONTRAST: CT scan of the abdomen and pelvis is performed with Oral Contrast and with IV Contrast, patient injec lynne with 100 mL of Isovue 300. FINDINGS: LUNG BASES-: Basilar atelectasis and/or infiltrates. LIVER/GB: No calcified gallstones. No space occupying hepatic lesion. Biliary tree is of normal ca liber. PANCREAS: No inflammation. No distinct mass. SPLEEN: No splenic enlargement. No lesion seen. ADRENALS: No nodule. No thickening. KIDNEYS/BLADDER: Postoperative changes right upper pole of the right kidney without recurrent mass. No hydronephrosis. No nephrolithiasis. No distinct renal mass. Urinary bladder grossly unremarkabl e. BOWEL: Normal appendix. Normal bowel caliber. No inflammation. Small incidental lipoma of the trans verse portion of the duodenum. GENITAL ORGANS: Prostate calcifications noted. LYMPH NODES: No greater than 1cm abdominal or pelvic lymph nodes are appreciated. AORTA: No significant abnormality. OSSEOUS STRUCTURES: No significant abnormality is seen. OTHER: No significant additional abnormality is seen. IMPRESSION: 1. Basilar atelectasis and/or infiltrates. 2. No acute intra-abdominal process appreciated at this time.
--- NOTE | 2021-02-19 18:52 | PN ---
PROGRESS NOTE DATE OF SERVICE: 02/19/2021 This 60-year-old gentleman who was admitted with acute bilateral pulmonary embolism is complaining of some chest pains, also. The patient possibly had a pulmonary infarct. The patient also had possibly chronic DVT of both legs. The patient was started on IV heparin. Multiple consultants are following the patient closely. There is no history of any RV strain on the CT scan. CT scan of the abdomen and pelvis did not show acute abnormality except some atelectasis in the lung. I also reviewed the 2D echo with Doppler which showed moderate concentric left ventricular hypertrophy with normal ejection fraction, and RV was mildly enlarged. No pericardial effusion was noted. No chest pain. No palpitations. No fever. Past medical history reviewed. REVIEW OF SYSTEMS: CARDIOVASCULAR SYSTEM: As mentioned earlier. RESPIRATION: As mentioned earlier. GI: As mentioned earlier. : No dysuria. NERVOUS SYSTEM: No numbness, weakness. CURRENT MEDICATIONS: Reviewed. They include Tylenol, [place], DuoNeb, Lipitor, Cymbalta. Doses are reviewed. PHYSICAL EXAMINATION: Patient is alert and oriented x3. Pulse 78, blood pressure 126/77, respiration 18, temperature 96.9, pulse ox 94% on 2 L. HEENT: Conjunctivae normal. NECK: No jugular venous distention. CARDIOVASCULAR: S1, S2 muffled. RESPIRATION: Breath sounds diminished at the bases. A few scattered rhonchi. ABDOMEN: Soft, nontender. LEGS: No edema. No swelling. LABS: WBC 10, hemoglobin is 14. Sodium, potassium 4.1. ASSESSMENT: 1. Shortness of breath with acute bilateral pulmonary embolism. 2. Possible bilateral lower leg DVTs, possibly chronic in nature. 3. History of recent pneumonia with chronic obstructive pulmonary disease exacerbation. 4. Increased white count. 5. Increased mean corpuscular volume. 6. S1 Q3 T3 pattern on the EKG. 7. Elevated D-dimer. 8. Hyponatremia. 9. Increased random blood sugar. 10.History of nicotine dependence. 11.History of ETOH. 12.History of partial nephrectomy for kidney cancer. 13.History of hyperlipidemia. 14.History of seasonal allergies. 15.History of nicotine dependence. 16.Obesity with body mass index of 30.9. 17.Minimal RV enlargement. 18.FULL CODE. RECOMMENDATIONS AND DISCUSSION: I recommend to continue current medications, continue with symptomatic treatment. Continue with IV heparin. Continue the rest of the medications. Pain medications. Closely follow with Pulmonary. Guarded prognosis. Further recommendations to follow. MMODL / IJN: [id number] / ROBERTO
[2021-02-19] MEDS: DULoxetine HCL 30 MG CAPSULE.DR PO SCH (20:25)
[2021-02-19] MEDS: MONTELUKAST 10 MG TAB PO SCH (20:25)
[2021-02-19 22:45] LABS: Cardiolipin Ab IgG Interp NEGATIVE (NEGATIVE); Cardiolipin Ab IgM Interp NEGATIVE (NEGATIVE); Cardiolipin IgA Antibody 4.1 U/mL; Cardiolipin IgM Antibody 3.2 U/mL
[2021-02-20] MEDS: HYDROcodone/APAP 5-325MG 1 EACH TAB PO PRN ×4 (01:01→22:15)
[2021-02-20] MEDS: PANTOPRAZOLE 40 MG TABLET PO SCH (06:10)
[2021-02-20] MEDS: NICOTINE 14MG/24HR PATCH TRANSDERM SCH (08:04)
[2021-02-20] MEDS: ATORVASTATIN 10 MG TAB PO SCH (08:04)
[2021-02-20] MEDS: IPRATROPIUM-ALBUTEROL 3 ML NEB INHALATION SCH ×3 (09:03→23:08)
[2021-02-20] MEDS: HEPARIN SOD,PORK IN 0.45% NACL 25,000 UNIT in 0.45% NACL 1 250ML.BAG IV SCH (14:50)
--- NOTE | 2021-02-20 15:27 | P.PN ---
Subjective Progress Note Date: 02/20/21 Principal diagnosis: Shortness of breath/pulmonary embolism. This is a very pleasant 60-year-old gentleman who follows with Dr. Decker as his primary care provider. He has a history of hyperlipidemia, depression, COPD, renal cell carcinoma with partial nephrectomy on the right, chronic and ongoing tobacco dependence. He was recently discharged from here 01/15/2021 after developing acute community-acquired right lung pneumonia. It involved the right middle and right lower lobes. CT scan at that time revealed evidence of COPD no pulmonary embolism. He presented here again to the emergency room yesterday with complaints of chest pain, pain on inhalation no cough and congestion. They have been going on approximately [address] angiogram revealed new bilateral pulmonary emboli without CT evidence for right heart strain. There is worsening bibasilar posterior atelectasis. Doppler of the lower extremities revealed chronic DVTs bilaterally. He's been initiated on a heparin drip. White count 10.0. Hemoglobin 14.0. Sodium 136. Potassium 4.1. Creatinine 0.70. D-dimer 3.63. He is seen today in consultation in the emergency department. He is currently sitting up in a stretcher. Awake and alert in no acute distress. He is maintaining good O2 saturations in the 90s on 2 L/m per nasal cannula. No worsening shortness of breath cough or congestion. Some of the pain on inhalation has subsided. He denied any long travel. No trauma to the lower extremities. No recent surgery. Possibly some sedentary lifestyle following his recent admission. Progress note dated 02/20/2021. 60-year-old male seen yesterday in consultation. We actually saw him in the emergency department. Today, he is in room 382. The patient remains on 3 L nasal cannula. He is receiving IV heparin. The patient could be started on a factor X a inhibitor such as Eliquis. I passed onto the nurse. The patient's feeling a bit short of breath still. PTT today was 50.5. Labs and x-rays were reviewed yesterday. Objective - Vital Signs Vital signs: Vital Signs Temp 98 F 02/20/21 13:00 Pulse 80 02/20/21 13:01 Resp 20 02/20/21 13:00 BP 144/63 02/20/21 13:00 Pulse Ox 93 L 02/20/21 13:00 Intake & Output 02/19/21 02/20/21 02/20/21 18:59 06:59 18:59 Intake Total 349.748 140.252 480 Output Total 1100 Balance -750.252 140.252 480 Weight 95.7 kg Intake: Intake, IV Titration 109.748 140.252 Amount Heparin Sod,Pork in 0.45% 109.748 140.252 NaCl 25,000 unit In 0.45 % NaCl 1 250ml.bag @ 18 UNITS/KG/HR 17.554 mls/hr IV .[id number] [facility] Rx#: [id number] Oral 240 480 Output: Urine 1100 Other: Voiding Method Urinal Urinal # Voids 1 1 - Exam No acute distress, oriented 3. Currently on nasal O2 at 3 L. No obvious res piratory distress. HEENT examination is grossly unremarkable. Neck supple. Full range of motion. No adenopathy thyromegaly or neck vein distention. Cardiovascular examination reveals regular rhythm rate. S1-S2 normal. No S3 or S4. No discernible murmur noted. Heart rate 80 bpm. Lungs reveal clear breath sounds. Breath sounds are equal bilaterally. No adventitious lung sounds including wheezes rhonchi or crackles. Saturations are 93% on 3 L. Abdomen soft bowel sounds are heard. No masses or tenderness. Extremities are intact. No cyanosis clubbing or edema. Skin is without rash or lesion. Neurologic examination is brief but nonfocal. - Labs CBC & Chem 7: 02/19/21 06:27 02/19/21 06:27 Labs: Abnormal Lab Results - Last 24 Hours (Table) 02/19/21 Range/Units 20:39 APTT 50.5 H (22.0-30.0) sec Assessment and Plan Assessment: Acute hypoxemic respiratory failure secondary to acute bilateral pulmonary emboli, unprovoked. Chronic bilateral lower extremity DVTs. Recent admission in December 2020, for community acquired pneumonia, right lung. Chronic and ongoing tobacco dependence. COPD. Hyperlipidemia. History of depression. Daily alcohol use. Plan: Plan dated 02/20/2021. The patient is on 3 L nasal cannula. He is still feeling a bit short of breath. The patient remains on IV heparin. I told his nurse that the primary service can start the patient on a factor X a inhibitor such as Eliquis. Also, hematology did see the patient. The patient will be evaluated for hypercoagulable state. We will continue to follow make recommendations where appropriate. Prognosis is guarded. Time with Patient: Less than 30
[2021-02-20] MEDS ORDERED: polyethylene glycoL 3350 17 GM POWD.PACK PO PRN (15:46)
--- NOTE | 2021-02-20 18:11 | P.PN ---
Progress Note - Text Progress Note Date: 02/20/21 Presenting complaint: Chest pain Hospital course This is a pleasant 60-year-old patient who follows with Dr. Decker. Chronic stable medical conditions include ALLERGIES, joint pains, hyperlipidemia, long- standing smoker. Recently admitted from January 12 through January 15 with pneumonia, pleurisy, acute COPD exacerbation. Now presented with right-sided chest pain. Computed tomography scan of the chest showed bilateral pulmonary embolism Doppler ultrasound showed DVT chronic lower extremity. Started on IV heparin drip. February 20: Sitting up in a chair. Some shortness of breath. The better. Did walk about in the room. Oral intake fair. On IV heparin. Review of systems: Was done for constitutional, cardiovascular, GI, pulmonary. relevant finding as above Active Medications Acetaminophen (Acetaminophen Tab 325 Mg Tab) 650 mg PO Q6HR PRN PRN Reason: Mild Pain or Fever > 100.5 Last Admin: 02/18/21 21:36 Dose: 650 mg Documented by: Hydrocodone Bitart/Acetaminophen (Hydrocodone/Apap 5-325mg 1 Each Tab) 1 each PO Q6HR PRN PRN Reason: Pain Last Admin: 02/20/21 15:52 Dose: 1 each Documented by: Albuterol/Ipratropium (Ipratropium-Albuterol 3 Ml Neb) 3 ml INHALATION RT-TID ON LICENSE OF [facility] Last Admin: 02/20/21 12:47 Dose: 3 ml Documented by: Albuterol/Ipratropium (Ipratropium-Albuterol 3 Ml Neb) 3 ml INHALATION RT-TID PRN PRN Reason: Shortness Of Breath Or Wheezing Atorvastatin Calcium (Atorvastatin 10 Mg Tab) 10 mg PO DAILY ON LICENSE OF [facility] Last Admin: 02/20/21 08:04 Dose: 10 mg Documented by: Duloxetine HCl (Duloxetine Hcl 30 Mg Capsule.Dr) 30 mg PO [facility] Last Admin: 02/19/21 20:25 Dose: 30 mg Documented by: Hydromorphone HCl (Hydromorphone 0.5 Mg/0.5 Ml Syringe) 0.5 mg IVP Q3HR PRN PRN Reason: Severe Pain Lorazepam (Lorazepam 0.5 Mg Tab) 0.5 mg PO Q4HR PRN PRN Reason: Anxiety Montelukast Sodium (Montelukast 10 Mg Tab) 10 mg PO [facility] Last Admin: 02/19/21 20:25 Dose: 10 mg Documented by: Naloxone HCl (Naloxone 0.4 Mg/Ml 1 Ml Vial) 0.2 mg IV Q2M PRN PRN Reason: Opioid Reversal Nicotine (Nicotine 14mg/24hr Patch) 1 patch TRANSDERM DAILY ON LICENSE OF [facility] Last Admin: 02/20/21 08:04 Dose: 1 patch Documented by: Ondansetron HCl (Ondansetron 4 Mg/2 Ml Vial) 4 mg IVP Q8HR PRN PRN Reason: Nausea And Vomiting Pantoprazole Sodium (Pantoprazole 40 Mg Tablet) 40 mg PO AC-BRKFST ON LICENSE OF [facility] Last Admin: 02/20/21 06:10 Dose: 40 mg Documented by: Polyethylene Glycol (Polyethylene Glycol 3350 17 Gm Powd.Pack) 17 gm PO DAILY PRN PRN Reason: Constipation Last Admin: 02/20/21 17:07 Dose: 17 gm Documented by: Rivaroxaban (Rivaroxaban 15 Mg Tab) 15 mg PO BID-W/MEALS ON LICENSE OF [facility]; Protocol Temazepam (Temazepam 15 Mg Cap) 15 mg PO HS PRN PRN Reason: Insomnia Past medical history to include: Right-sided renal cell cancer with partial nephrectomy in 2014. Patient had serial follow-up l 2 years ago. COPD, hyperlipidemia, seasonal ALLERGIES, depression Social history: Patient drinks 4-5 beers about 5 times a week. . 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 Family history: Reviewed, noncontributory to presentation Physical examination: VITAL SIGNS: 98, 89, 20, 140/63, 93% on 3 L GENERAL: Sitting up in a chair, awake EYES: Pupils equal. Conjunctiva normal. HEENT: External appearance of nose and ears normal, oral cavity grossly normal. NECK: JVD not raised; masses not palpable. HEART: First and second heart sounds are normal; no edema. LUNGS: Respiratory rate normal, decreased breaths sounds ABDOMEN: Soft, nontender, liver spleen not palpable, no masses palpable. PSYCH: Alert and oriented x3; mood and affect normal. INVESTIGATIONS, reviewed in the clinical context: White count 10 hemoglobin 14 platelets 192 sodium 136 potassium 4.1 creatinine 0.70 Anticardiolipin IgG antibody, IgG antibody, IgM antibody: All negative EKG tracing personally reviewed by me-normal sinus rhythm. CT abdomen pelvis: Basilar atelectasis/infiltrate no intra-abdominal processes. Doppler ultrasound lower extremity: Bilateral chronic DVT CT angiogram chest for PE: Bilateral pulmonary embolism without evidence of strain 2-D echocardiogram: Moderate concentric LVH. EF 60-65% Assessment and plan: -Acute bilateral pulmonary embolism without evidence of right ventricle strain IV heparin. -Acute hypoxic respiratory failure from bilateral pulmonary embolism On 3 L of nasal cannula. Add incentive spirometry -Possibly pulmonary infarction Incentive spirometry -COPD in a current smoker DuoNeb 4 times a day. Add Symbicort -Chronic nicotine dependence, cigarettes smoker Nicotine patch -Chronic ALLERGIES Singlet 10 mg daily at bedtime -Hyperlipidemia Lipitor 10 mg daily IV heparin monitoring Follow PTT Increase DuoNeb to 4 times a day. Add Symbicort. Nicotine patch. Start patient on xarelto tonight. Discussed with patient. Increase activity as tolerated. Bilateral RADHA stockings. Incentive spirometry.
[2021-02-20] MEDS: RIVAROXABAN 15 MG TAB PO SCH (18:52)
[2021-02-20] MEDS: MONTELUKAST 10 MG TAB PO SCH (19:37)
[2021-02-20] MEDS: DULoxetine HCL 30 MG CAPSULE.DR PO SCH (19:37)
[2021-02-20] MEDS: SYMBICORT 80-4.5 MCG INHALER INHALATION SCH (23:08)
[2021-02-21] MEDS: ACETAMINOPHEN TAB 325 MG TAB PO PRN (05:14)
[2021-02-21] MEDS: PANTOPRAZOLE 40 MG TABLET PO SCH (06:15)
[2021-02-21] MEDS: RIVAROXABAN 15 MG TAB PO SCH (06:15)
[2021-02-21] MEDS: NICOTINE 14MG/24HR PATCH TRANSDERM SCH (06:16)
[2021-02-21] MEDS: IPRATROPIUM-ALBUTEROL 3 ML NEB INHALATION SCH ×2 (08:26→12:18)
[2021-02-21] MEDS: SYMBICORT 80-4.5 MCG INHALER INHALATION SCH (08:27)
[2021-02-21] MEDS: ATORVASTATIN 10 MG TAB PO SCH (08:59)
--- NOTE | 2021-02-21 10:56 | P.PN ---
Subjective Progress Note Date: 02/21/21 Principal diagnosis: PE CT of the abdomen negative for underlying malignancy. Agree with DOAC and ok for discharge from hematology Objective - Vital Signs Vital signs: Vital Signs Temp 97.4 F L 02/21/21 03:47 Pulse 82 02/21/21 08:42 Resp 22 02/21/21 03:47 BP 142/79 02/21/21 03:47 Pulse Ox 95 02/21/21 08:29 Intake & Output 02/20/21 02/21/21 02/21/21 18:59 06:59 18:59 Intake Total 720 240 240 Balance 720 240 240 Weight 95.4 kg Intake: Oral 720 240 240 Other: Voiding Method Toilet # Voids 1 2 - Exam Alert NAD Neck: Supple Head NCAT Lungs: CTA Heart R Abdomen: Soft Calm - Labs CBC & Chem 7: 02/19/21 06:27 02/19/21 06:27 Assessment and Plan (1) Bilateral pulmonary embolism Current Visit: Yes Status: Acute Code(s): I26.99 - OTHER PULMONARY EMBOLISM WITHOUT ACUTE COR PULMONALE SNOMED Code(s): 03034061 (2) Parapneumonic effusion Current Visit: No Status: Acute Code(s): J18.9 - PNEUMONIA, UNSPECIFIED ORGANISM; J91.8 - PLEURAL EFFUSION IN OTHER CONDITIONS CLASSIFIED ELSEWHERE SNOMED Code(s): 46421855 (3) Pneumonia Current Visit: No Status: Acute Code(s): J18.9 - PNEUMONIA, UNSPECIFIED ORGANISM SNOMED Code(s): 636498770 (4) History of renal cell carcinoma Current Visit: Yes Status: Acute Code(s): Z85.528 - PERSONAL HISTORY OF OTHER MALIGNANT NEOPLASM OF KIDNEY SNOMED Code(s): 259878787 Plan: With recent hospitalization for pneumonia we will further work-up an antiphospholipid syndrome, labs placed He also has history of Renal Cell Carcinoma: Status post partial right nephrectomy therefore further evaluation of recurrent malignancy is warranted: CT abdomen and Pelvis ordered. DISPO PLAN: - Agree with DOAC - Xarelto - PLan follow-up in 4-[address] Reagan for hypercoag work-up - Follow closely with Primary Urologist
[2021-02-21 13:20] LABS: APTT 126 Sec(s) (<43); APTT 1:1 Mix 84 Sec(s) (<43); DRVVT 1:1 Mix 42 Sec(s) (<44); Dilute Russell Viper Venom 51 Sec(s) (<44); Hexagonal Phase Neutralization Positive (Negative)
[2021-02-21 13:32] VITALS: RESP 18
[2021-02-21 13:35] VITALS: BP 124/72; PULSE 68; TEMP 98.1
--- NOTE | 2021-02-21 17:14 | P.DS ---
Providers Date of admission: 02/19/21 15:34 Expected date of discharge: 02/21/21 Attending physician: Marcelino Hernandez Consults: 02/18/21 15:26 Consult Physician Urgent Consulting Provider: Kris Dunn Consult Reason/Comments: Bilateral PE's Do you want consulting provider notified?: Yes 02/18/21 18:52 Consult Physician Routine Consulting Provider: Regulo Reagan Consult Reason/Comments: pe Do you want consulting provider notified?: Yes Primary care physician: Phani Decker Hospital Course: Presenting complaint: Chest pain Hospital course This is a pleasant 60-year-old patient who follows with Dr. Decker. Chronic stable medical conditions include ALLERGIES, joint pains, hyperlipidemia, long- standing smoker. Recently admitted from January 12 through January 15 with pneumonia, pleurisy, acute COPD exacerbation. Now presented with right-sided chest pain. Computed tomography scan of the chest showed bilateral pulmonary embolism Doppler ultrasound showed DVT chronic lower extremity. Started on IV heparin drip. February 20: Sitting up in a chair. Some shortness of breath. The better. Did walk about in the room. Oral intake fair. On IV heparin. February 21: Patient's pulse ox improved. Checked on room air was 95%. And 92% with examination. Patient has been rather sedantry. Including long hours of sitting and fishing. But improve his activity. Patient be discharged and xarelto. Discussed with the nurse. RADHA fleming. Questions were answered. No chest pain. Patient to follow with Dr. Reagan, / oncology, Dr. Dunn from pulmonary Discussion and discharge planning more than 35 minutes Consultation: Dr. Dunn from pulmonary Past medical history to include: Right-sided renal cell cancer with partial nephrectomy in 2014. Patient had serial follow-up l 2 years ago. COPD, hyperlipidemia, seasonal ALLERGIES, depression Social history: Patient drinks 4-5 beers about 5 times a week. . 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 Family history: Reviewed, noncontributory to presentation Physical examination: VITAL SIGNS: 98.168, 18, 1 24 x 72, 95% on room air GENERAL: Eating at the edge of bed, comfortable EYES: Pupils equal. Conjunctiva normal. HEENT: External appearance of nose and ears normal, oral cavity grossly normal. NECK: JVD not raised; masses not palpable. HEART: First and second heart sounds are normal; no edema. LUNGS: Respiratory rate normal, decreased breaths sounds ABDOMEN: Soft, nontender, liver spleen not palpable, no masses palpable. PSYCH: Alert and oriented x3; mood and affect normal. INVESTIGATIONS, reviewed in the clinical context: Lupus anticoagulant aPTT 126 PTT mix 84 dilute Quang wiper venom 51 Lupus hexagonaL phase positive a White count 10 hemoglobin 14 platelets 192 sodium 136 potassium 4.1 creatinine 0.70 Anticardiolipin IgG antibody, IgG antibody, IgM antibody: All negative EKG tracing personally reviewed by me-normal sinus rhythm. CT abdomen pelvis: Basilar atelectasis/infiltrate no intra-abdominal processes. Doppler ultrasound lower extremity: Bilateral chronic DVT CT angiogram chest for PE: Bilateral pulmonary embolism without evidence of strain 2-D echocardiogram: Moderate concentric LVH. EF 60-65% Assessment and plan: -Acute bilateral pulmonary embolism without evidence of right ventricle strain IV heparin. Changed over to xarelto -Acute hypoxic respiratory failure from bilateral pulmonary embolism: Corrected Initially on oxygen. Now 95% on room air -Possibly pulmonary infarction: Clinically improved Incentive spirometry -COPD in a current smoker Symbicort, albuterol when necessary -Chronic nicotine dependence, cigarettes smoker Nicotine patch -Chronic ALLERGIES Singlet 10 mg daily at bedtime -Hyperlipidemia Lipitor 10 mg daily IV heparin monitoring: Discontinued Follow PTT Disposition: Home Patient Condition at Discharge: Stable Plan - Discharge Summary New Discharge Prescriptions: New Rivaroxaban [Xarelto Starter Pack] 0 mg PO DIRECTED 30 Days #1 packet Nicotine 14Mg/24Hr Patch [Habitrol] 1 patch TRANSDERM DAILY #14 patch Budesonide-Formot 160-4.5 Mcg [Symbicort 160-4.5 Mcg Inhaler] 1 puff INHALATION BID #1 each Continue Montelukast [Singulair] 10 mg PO HS DULoxetine HCL [Cymbalta] 30 mg PO HS Atorvastatin Calcium [Lipitor] 10 mg PO DAILY Albuterol Sulfate [Albuterol Sulfate Hfa] 2 puff PO RT-Q6H Discharge Medication List Atorvastatin Calcium [Lipitor] 10 mg PO DAILY 01/12/21 [History] DULoxetine HCL [Cymbalta] 30 mg PO HS 01/12/21 [History] Montelukast [Singulair] 10 mg PO HS 01/12/21 [History] Albuterol Sulfate [Albuterol Sulfate Hfa] 2 puff PO RT-Q6H 02/18/21 [History] Budesonide-Formot 160-4.5 Mcg [Symbicort 160-4.5 Mcg Inhaler] 1 puff INHALATION BID #1 each 02/21/21 [Rx] Nicotine 14Mg/24Hr Patch [Habitrol] 1 patch TRANSDERM DAILY #14 patch 02/21/21 [Rx] Rivaroxaban [Xarelto Starter Pack] 0 mg PO DIRECTED 30 Days #1 packet 02/21/21 [Rx] Follow up Appointment(s)/Referral(s): Phani Decker DO [Primary Care Provider] - 02/26/21 10:30 am (Wednesday) Kris Dunn DO [Doctor of Osteopathic Medicine] - 2 Weeks (Please call offices Wednesday to get a follow up appointment.) Patient Instructions/Handouts: Pulmonary Embolism (DC), Deep Vein Thrombosis (DC), Safe Use of Anticoagulants (DC) Activity/Diet/Wound Care/Special Instructions: Patient qualifies for $10 copay card for Xarelto and the 1 Free month coupon. RADHA fleming Discharge Disposition: HOME SELF-CARE
== END 2021-02-21 14:12 | disposition home or self-care (01) | DRG 175 ==
LOC: EC 09:32 → INTOOBSV 14:46 → 3SCARD 14:46 → OBSVTOIN 02-19 15:34
PROVIDERS: ADMIT Hospitalist; ATTEND Hospitalist
DX: I26.99 Other pulmonary embolism without acute cor pulmonale (principal); J96.01 Acute respiratory failure with hypoxia; I82.503 Chronic embolism and thrombosis of unspecified deep veins of lower extremity, bilateral; E87.1 Hypo-osmolality and hyponatremia; J91.8 Pleural effusion in other conditions classified elsewhere; J98.11 Atelectasis; J44.1 Chronic obstructive pulmonary disease with (acute) exacerbation; E66.9 Obesity, unspecified; E78.5 Hyperlipidemia, unspecified; F17.210 Nicotine dependence, cigarettes, uncomplicated; J30.2 Other seasonal allergic rhinitis; J44.9 Chronic obstructive pulmonary disease, unspecified; Z20.822 Contact with and (suspected) exposure to COVID-19; Z68.30 Body mass index [BMI] 30.0-30.9, adult; Z87.01 Personal history of pneumonia (recurrent); Z85.528 Personal history of other malignant neoplasm of kidney; Z79.899 Other long term (current) drug therapy; Z90.5 Acquired absence of kidney; Z72.3 Lack of physical exercise; Z88.8 Allergy status to other drugs, medicaments and biological substances
CPT/HCPCS: 36415; 71046; 71275; 74177; 80048; 80053; 81001; 83605; 83735; 83880; 84484; 85025; 85379; 85610; 85613; 85730; 86147; 87635; 93005; 93306; 93970; 94640; 94760; 96374; 96375; 99291

== ENCOUNTER 2021-12-05 02:00 | Emergency (ER) | payer BC ==
[2021-12-05 02:10] VITALS: TEMP 98.1
[2021-12-05] MEDS ORDERED: SODIUM CHLORIDE 0.9% 1,000 ML IV STA (02:16)
--- NOTE | 2021-12-05 02:17 | ED ---
Chest Pain HPI - General Chief Complaint: Chest Pain Stated Complaint: Right sided chest pain Time Seen by Provider: 12/05/21 02:15 Source: patient, RN notes reviewed, old records reviewed Mode of arrival: ambulatory Limitations: no limitations - History of Present Illness Initial Comments: This is a 61-year-old male DF for evaluation presents today for evaluation of chest pain right-sided chest pain patient does have a history of PE. Patient has no known recent travel history or sick contacts. No shortness of breath currently. No nausea vomiting. No fevers. MD Complaint: chest pain -: hour(s) Onset: during rest Pain Location: right chest Pain Radiation: none, back Severity: moderate Severity scale (1-10): 7 Quality: sharp Consistency: intermittent Improves With: nothing Worsens With: nothing Context: other (0) Anginal Symptoms: other (0) Other Symptoms: other (0) Treatments Prior to Arrival: none - Related Data Home Medications Medication Instructions Recorded Confirmed Atorvastatin Calcium [Lipitor] 10 mg PO DAILY 01/12/21 02/18/21 DULoxetine HCL [Cymbalta] 30 mg PO HS 01/12/21 02/18/21 Montelukast [Singulair] 10 mg PO HS 01/12/21 02/18/21 Albuterol Sulfate [Albuterol 2 puff PO RT-Q6H 02/18/21 02/18/21 Sulfate Hfa] Previous Rx's Medication Instructions Recorded Budesonide-Formot 160-4.5 Mcg 1 puff INHALATION BID #1 each 02/21/21 [Symbicort 160-4.5 Mcg Inhaler] Nicotine 14Mg/24Hr Patch [Habitrol] 1 patch TRANSDERM DAILY #14 patch 02/21/21 Rivaroxaban [Xarelto Starter Pack] 0 mg PO DIRECTED 30 Days #1 02/21/21 packet Allergies Allergy/AdvReac Type Severity Reaction Status Date / Time preservative multidose vial Allergy Hallucinati Uncoded 12/05/21 02:10 ons Review of Systems ROS Statement: Those systems with pertinent positive or pertinent negative responses have been documented in the HPI. ROS Other: All systems not noted in ROS Statement are negative. EKG Findings - EKG Comments: EKG Findings:: EKG shows sinus bradycardia 59 CA 187 QRS 73 QTC 422 Past Medical History Past Medical History: Cancer, Hyperlipidemia Additional Past Medical History / Comment(s): seasonal allergies, kidney cancer, pt reports PE history History of Any Multi-Drug Resistant Organisms: None Reported Additional Past Surgical History / Comment(s): partial nephrectomy Past Anesthesia/Blood Transfusion Reactions: No Reported Reaction Past Psychological History: Depression Smoking Status: Current every day smoker Past Alcohol Use History: Daily Past Drug Use History: None Reported - Past Family History Mother History Unknown: Yes General Exam Limitations: no limitations General appearance: alert, in no apparent distress Head exam: Present: atraumatic, normocephalic, normal inspection Eye exam: Present: normal appearance, PERRL, EOMI. Absent: scleral icterus, conjunctival injection, periorbital swelling ENT exam: Present: normal exam, mucous membranes moist Neck exam: Present: normal inspection. Absent: tenderness, meningismus, lymphadenopathy Respiratory exam: Present: normal lung sounds bilaterally. Absent: respiratory distress, wheezes, rales, rhonchi, stridor Cardiovascular Exam: Present: regular rate, normal rhythm, normal heart sounds. Absent: systolic murmur, diastolic murmur, rubs, gallop, clicks GI/Abdominal exam: Present: soft, normal bowel sounds. Absent: distended, tenderness, guarding, rebound, rigid Extremities exam: Present: normal inspection, full ROM, normal capillary refill. Absent: tenderness, pedal edema, joint swelling, calf tenderness Back exam: Present: normal inspection Neurological exam: Present: alert, oriented X3, CN II-XII intact Psychiatric exam: Present: normal affect, normal mood Skin exam: Present: warm, dry, intact, normal color. Absent: rash Course Vital Signs 12/05/21 02:01 Temperature 98.1 F Pulse Rate 64 Respiratory 22 Rate Blood Pressure 191/97 O2 Sat by Pulse 99 Oximetry - Reevaluation(s) Reevaluation #1: 12/05/21 05:32 Medical record is reviewed Reevaluation #2: 12/05/21 05:32 Patient symptoms of chest pain are improved here in the ER Reevaluation #3: 12/05/21 05:32 Patient informed results questions answered Chest Pain MDM - MDM 61 male with chest pain history of PE CT is negative for PE patient can be discharged home Disposition Clinical Impression: Chest pain, Atypical chest pain Disposition: HOME SELF-CARE Condition: Good Instructions (If sedation given, give patient instructions): Chest Pain (ED) Is patient prescribed a controlled substance at d/c from ED?: No Referrals: Phani Decker DO [Primary Care Provider] - 1-2 days Time of Disposition: 05:30
[2021-12-05 03:46] LABS: Basophils # (A) 0.1 k/uL (0-0.2); Basophils % (A) 1 %; Eosinophils # (A) 0.4 k/uL (0-0.7); Eosinophils % (A) 5 %; HCT 44.4 % (39.0-53.0); HGB 14.5 gm/dL (13.0-17.5); Lymphocytes # (A) 1.6 k/uL (1.0-4.8); Lymphocytes % (A) 16 %; MCH 33.2 pg (25.0-35.0); MCHC 32.6 g/dL (31.0-37.0); MCV 101.8 fL (80.0-100.0); Macrocytosis Slight; Mean Platelet Volume 8.1; Monocytes # (A) 0.6 k/uL (0-1.0); Monocytes % (A) 6 %; Neutrophils # (A) 6.9 k/uL (1.3-7.7); Neutrophils % (A) 71 %; Platelet Count 195 k/uL (150-450); RBC 4.36 m/uL (4.30-5.90); RDW 12.9 % (11.5-15.5); WBC 9.7 k/uL (3.8-10.6)
[2021-12-05 04:02] LABS: ALT 28 U/L (4-49); AST 27 U/L (17-59); African American GFR (CKD) >90 (>60 ml/min/1.73 sqM); Albumin 3.9 g/dL (3.5-5.0); Alkaline Phosphatase 53 U/L (38-126); Anion Gap 8 mmol/L; Blood Urea Nitrogen 18 mg/dL (9-20); Calcium 9.2 mg/dL (8.4-10.2); Carbon Dioxide 23 mmol/L (22-30); Chloride 108 mmol/L (98-107); Glucose 104 mg/dL (74-99); Lipase 124 U/L (23-300); Magnesium 1.8 mg/dL (1.6-2.3); Non-African American GFR(CKD) >90 (>60 ml/min/1.73 sqM); Sodium 139 mmol/L (137-145); Total Bilirubin 0.2 mg/dL (0.2-1.3); Total Protein 5.9 g/dL (6.3-8.2)
[2021-12-05 04:03] LABS: Partial Thromboplastin Time 22.7 sec (22.0-30.0)
--- NOTE | 2021-12-05 05:01 | CT ---
EXAMINATION TYPE: CT angio chest DATE OF EXAM: 12/05/2021 COMPARISON: 02/18/2021 HISTORY: Right sided chest pain, hx of PE CT DLP: 467.3 mGycm Automated exposure control for dose reduction was used. CONTRAST: Performed with IV Contrast, patient injected with 90ml mL of Isovue 370. There are Three-D postprocessed images. There is some mild pulmonary emphysema. There is some mild interstitial infiltrate and atelectasis at the lung bases. There is no mediastinal adenopathy. Thoracic aorta is intact. No aneurysm or dissection. No evidence of filling defect in the pulmonary arteries. The thoracic spine is intact. Sternum is intact. IMPRESSION: No evidence of pulmonary embolism. Interstitial infiltrates and atelectasis at the lung bases. Pulmon hardeep emphysema. No suspicious pulmonary mass.
[2021-12-05 06:00] VITALS: BP 166/79; PULSE 78; RESP 15
== END 2021-12-05 06:06 | disposition home or self-care (01) ==
LOC: EC 02:00
DX: R07.89 Other chest pain (principal); F17.200 Nicotine dependence, unspecified, uncomplicated; Z86.711 Personal history of pulmonary embolism; Z79.51 Long term (current) use of inhaled steroids
CPT/HCPCS: 96360 ×2; 99285 ×2; 36415; 93005; 85379; 83880; 80053; 83690; 83735; 84484; 85025; 85610; 85730; 71275; Q9967; 99284

== ENCOUNTER 2022-04-14 15:26 | Observation (INO) | payer BC ==
[2022-04-14 16:14] LABS: Basophils # (A) 0.1 k/uL (0-0.2); Basophils % (A) 1 %; Eosinophils # (A) 0.5 k/uL (0-0.7); Eosinophils % (A) 6 %; HCT 43.3 % (39.0-53.0); HGB 14.7 gm/dL (13.0-17.5); Lymphocytes % (A) 27 %; MCH 32.6 pg (25.0-35.0); MCV 95.9 fL (80.0-100.0); Mean Platelet Volume 7.8; Monocytes # (A) 0.4 k/uL (0-1.0); Monocytes % (A) 5 %; Neutrophils # (A) 4.2 k/uL (1.3-7.7); Neutrophils % (A) 58 %; Platelet Count 197 k/uL (150-450); RBC 4.51 m/uL (4.30-5.90); RDW 12.7 % (11.5-15.5); WBC 7.3 k/uL (3.8-10.6)
[2022-04-14 16:29] LABS: ALT 31 U/L (4-49); AST 24 U/L (17-59); African American GFR (CKD) >90 (>60 ml/min/1.73 sqM); Albumin 4.1 g/dL (3.5-5.0); Alkaline Phosphatase 49 U/L (38-126); Anion Gap 7 mmol/L; Blood Urea Nitrogen 15 mg/dL (9-20); Calcium 9.3 mg/dL (8.4-10.2); Carbon Dioxide 25 mmol/L (22-30); Chloride 110 mmol/L (98-107); Glucose 83 mg/dL (74-99); Magnesium 1.9 mg/dL (1.6-2.3); Non-African American GFR(CKD) >90 (>60 ml/min/1.73 sqM); Potassium 4.1 mmol/L (3.5-5.1); Sodium 142 mmol/L (137-145); Total Bilirubin 0.5 mg/dL (0.2-1.3); Total Protein 6.3 g/dL (6.3-8.2)
--- NOTE | 2022-04-14 16:34 | XR ---
EXAMINATION TYPE: XR chest 2V DATE OF EXAM: 04/14/2022 4:30 PM COMPARISON: Chest radiographs from 02/18/2021, CTA chest 12/05/2021. TECHNIQUE: XR chest 2V Frontal and lateral views of the chest. CLINICAL INDICATION:Male, 61 years old with history of Chest Pain; FINDINGS: Lungs/Pleura: There is no evidence of pleural effusion, focal consolidation, or pneumothorax. Chronic senescent parenchymal changes. Pulmonary vascularity: Unremarkable. Heart/mediastinum: Cardiomediastinal silhouette is unremarkable. Musculoskeletal: No acute osseous pathology. Crests at IMPRESSION: No acute cardiopulmonary disease/process.
[2022-04-14] MEDS ORDERED: NITROGLYCERIN SL TABS 0.4 MG TAB SUBLINGUAL PRN (17:47)
[2022-04-14] MEDS ORDERED: ASPIRIN 81 MG PO STA (17:47)
--- NOTE | 2022-04-14 17:47 | ED ---
General Adult HPI - General Chief complaint: Chest Pain Stated complaint: chest pain, hypertension Time Seen by Provider: 04/14/22 17:25 Source: patient, family, RN notes reviewed Mode of arrival: ambulatory Limitations: no limitations - History of Present Illness Initial comments: Patient is a pleasant 61-year-old male presenting to the emergency department with concern with chest discomfort. Onset of symptoms was a couple weeks ago. Symptoms have been waxing and waning. Patient has burning or tightness in his chest without radiation. Occasional associated dyspnea. No nausea or vomiting. No diaphoresis. No history of similar symptoms previously. Patient did see his doctor and is scheduled to have stress test in the next couple weeks. D iscomfort is mild at this time. Blood pressure has been running high at home, also intermittently. Blood pressure has been as high as 160/109 - Related Data Home Medications Medication Instructions Recorded Confirmed Atorvastatin Calcium [Lipitor] 10 mg PO DAILY 01/12/21 02/18/21 DULoxetine HCL [Cymbalta] 30 mg PO HS 01/12/21 02/18/21 Montelukast [Singulair] 10 mg PO HS 01/12/21 02/18/21 Albuterol Sulfate [Albuterol 2 puff PO RT-Q6H 02/18/21 02/18/21 Sulfate Hfa] Previous Rx's Medication Instructions Recorded Budesonide-Formot 160-4.5 Mcg 1 puff INHALATION BID #1 each 02/21/21 [Symbicort 160-4.5 Mcg Inhaler] Nicotine 14Mg/24Hr Patch [Habitrol] 1 patch TRANSDERM DAILY #14 patch 02/21/21 Rivaroxaban [Xarelto Starter Pack] 0 mg PO DIRECTED 30 Days #1 02/21/21 packet Allergies Allergy/AdvReac Type Severity Reaction Status Date / Time preservative multidose vial Allergy Hallucinati Uncoded 12/05/21 02:10 ons Review of Systems ROS Statement: Those systems with pertinent positive or pertinent negative responses have been documented in the HPI. ROS Other: All systems not noted in ROS Statement are negative. Constitutional: Denies: fever Eyes: Denies: eye pain ENT: Denies: ear pain Respiratory: Denies: cough Cardiovascular: Reports: as per HPI, chest pain Endocrine: Denies: fatigue Gastrointestinal: Denies: abdominal pain Genitourinary: Denies: dysuria Past Medical History Past Medical History: Cancer, Hyperlipidemia Additional Past Medical History / Comment(s): seasonal allergies, kidney cancer, pt reports PE history History of Any Multi-Drug Resistant Organisms: None Reported Additional Past Surgical History / Comment(s): partial nephrectomy Past Anesthesia/Blood Transfusion Reactions: No Reported Reaction Past Psychological History: Depression Smoking Status: Current every day smoker Past Alcohol Use History: Daily Past Drug Use History: None Reported - Past Family History Mother History Unknown: Yes General Exam Limitations: no limitations General appearance: alert, in no apparent distress Head exam: Present: normocephalic Eye exam: Present: normal appearance Neck exam: Present: normal inspection Respiratory exam: Present: normal lung sounds bilaterally. Absent: chest wall tenderness Cardiovascular Exam: Present: regular rate, normal rhythm Expanded Peripheral pulses: 2+: Radial (R), Radial (L), Posterior Tibialis (R), Posterior Tibialis (L) GI/Abdominal exam: Present: soft. Absent: tenderness Extremities exam: Present: normal inspection. Absent: pedal edema, calf tenderness Neurological exam: Present: alert Psychiatric exam: Present: normal affect, normal mood Skin exam: Present: normal color Course Vital Signs 04/14/22 15:29 Temperature 98.0 F Pulse Rate 69 Respiratory 16 Rate Blood Pressure 162/109 O2 Sat by Pulse 100 Oximetry EKG Findings - EKG Results: EKG: interpreted by ERMD, sinus rhythm, normal axis, normal QRS, normal ST/T Medical Decision Making - Medical Decision Making Was pt. sent in by a medical professional or institution (, PA, CLAM DREDGER, urgent care, hospital, or shelter...) When possible be specific @ -No Did you speak to anyone other than the patient for history (EMS, parent, family, police, friend...)? What history was obtained from this source @ -Family is present and helps provide history including duration of symptoms Did you review nursing and triage notes (agree or disagree)? Why? @ -I reviewed and agree with nursing and triage notes Were old charts reviewed (outside hosp., previous admission, EMS record, old EKG, old radiological studies, urgent care reports/EKG's, shelter records)? Report findings @ -No old charts were reviewed Differential Diagnosis (chest pain, altered mental status, abdominal pain women, abdominal pain men, vaginal bleeding, weakness, fever, dyspnea, syncope, headache, dizziness, GI bleed, back pain, seizure, CVA, palpatations, mental health)? @ -Differential Chest Pain: Stable Angina, Unstable Angina, STEMI, NSTEMI Aortic Dissection, Pneumothorax, Musculoskeletal, Esophageal Spasm GERD, Cholecystitis, Pancreatitis, Zoster, this is not meant to be an all-inclusive list. EKG interpreted by me (3pts min.). @ -As above X-rays interpreted by me (1pt min.). @ -Chest x-ray shows no acute process. CT interpreted by me (1pt min.). @ -None done U/S interpreted by me (1pt. min.). @ -None done What testing was considered but not performed or refused? (CT, X-rays, U/S, labs)? Why? @ -Consider d-dimer and this will be added. What meds were considered but not given or refused? Why? @ -None Did you discuss the management of the patient with other professionals (professionals i.e. , PA, CLAM DREDGER, lab, RT, psych nurse, social science professor, solid center winder, teacher, legal officer, cyanide case hardener)? Give summary @ -Patient and family updated on results and plan. They're updated. Case was also discussed with practitioner Sharonda, who will admit covering Dr. Hernandez wh o admits for Dr. sravani Jha Was smoking cessation discussed for >3mins.? @ -No Was critical care preformed (if so, how long)? @ -No Were there social determinants of health that impacted care today? How? (Ho melessness, low income, unemployed, alcoholism, drug addiction, transportation, low edu. Level, literacy, decrease access to med. care, usp, rehab)? @ -No Was there de-escalation of care discussed even if they declined (Discuss DNR or withdrawal of care, Hospice)? DNR status @ -No What co-morbidities impacted this encounter? (DM, HTN, Smoking, COPD, CAD, Cancer, CVA, ARF, Chemo, Hep., AIDS, mental health diagnosis, sleep apnea, morbid obesity)? @ -None Was patient admitted / discharged? Hospital course, mention meds given and route, prescriptions, significant lab abnormalities, going to OR and other pertinent info. @ -Patient will be admitted. Patient and family updated. D-dimer added. Admission orders written. Undiagnosed new problem with uncertain prognosis? @ -Undiagnosed new problem with uncertain prognosis Drug Therapy requiring intensive monitoring for toxicity (Heparin, Nitro, Insulin, Cardizem)? @ -No Were any procedures done? @ -No Diagnosis/symptom? @ -Acute chest pain Acute, or Chronic, or Acute on Chronic? @ -Acute Uncomplicated (without systemic symptoms) or Complicated (systemic symptoms)? @ -Uncomplicated at this time Side effects of treatment? @ -No Exacerbation, Progression, or Severe Exacerbation? @ -No Poses a threat to life or bodily function? How? (Chest pain, [place], VA, pneumonia, PE, COPD, DKA, ARF, appy, cholecystitis, CVA, Diverticulitis, Homicidal, Suicidal, threat to staff... and all critical care pts) @ -This does potentially poses a threat to life and bodily function. - Lab Data Result diagrams: 04/14/22 15:59 04/14/22 15:59 Lab Results 04/14/22 04/14/22 04/14/22 Range/Units 15:59 15:59 15:59 WBC 7.3 (3.8-10.6) k/uL RBC 4.51 (4.30-5.90) m/uL Hgb 14.7 (13.0-17.5) gm/dL Hct 43.3 (39.0-53.0) % MCV 95.9 (80.0-100.0) fL MCH 32.6 (25.0-35.0) pg MCHC 34.0 (31.0-37.0) g/dL RDW 12.7 (11.5-15.5) % Plt Count 197 (150-450) k/uL MPV 7.8 Neutrophils % 58 % Lymphocytes % 27 % Monocytes % 5 % Eosinophils % 6 % Basophils % 1 % Neutrophils # 4.2 (1.3-7.7) k/uL Lymphocytes # 2.0 (1.0-4.8) k/uL Monocytes # 0.4 (0-1.0) k/uL Eosinophils # 0.5 (0-0.7) k/uL Basophils # 0.1 (0-0.2) k/uL Sodium 142 (137-145) mmol/L Potassium 4.1 (3.5-5.1) mmol/L Chloride 110 H (98-107) mmol/L Carbon Dioxide 25 (22-30) mmol/L Anion Gap 7 mmol/L BUN 15 (9-20) mg/dL Creatinine 0.82 (0.66-1.25) mg/dL Est GFR (CKD-EPI)AfAm >90 (>60 ml/min/1.73 sqM) Est GFR (CKD-EPI)NonAf >90 (>60 ml/min/1.73 sqM) Glucose 83 (74-99) mg/dL Calcium 9.3 (8.4-10.2) mg/dL Magnesium 1.9 (1.6-2.3) mg/dL Total Bilirubin 0.5 (0.2-1.3) mg/dL AST 24 (17-59) U/L ALT 31 (4-49) U/L Alkaline Phosphatase 49 (38-126) U/L Troponin I <0.012 (0.000-0.034) ng/mL Total Protein 6.3 (6.3-8.2) g/dL Albumin 4.1 (3.5-5.0) g/dL Disposition Clinical Impression: Chest pain Disposition: ADMITTED IP TO THIS HOSP Is patient prescribed a controlled substance at d/c from ED?: No Referrals: Phani Decker DO [Primary Care Provider] - 1-2 days Time of Disposition: 17:46
[2022-04-14 18:07] LABS: INR 1.2 (<1.2); Partial Thromboplastin Time 23.7 sec (22.0-30.0)
[2022-04-14] MEDS: NITROGLYCERIN OINT 1 INCH/GM PACKET TOPICAL SCH (19:03)
[2022-04-14] MEDS ORDERED: DULoxetine HCL 30 MG CAPSULE.DR PO SCH (21:00)
[2022-04-14] MEDS ORDERED: MONTELUKAST 10 MG TAB PO SCH (21:00)
[2022-04-15] MEDS: NITROGLYCERIN OINT 1 INCH/GM PACKET TOPICAL SCH ×2 (00:57→06:09)
[2022-04-15 07:05] VITALS: BP 135/67; PULSE 53; RESP 16; TEMP 97.8
[2022-04-15] MEDS ORDERED: ASPIRIN 81 MG PO SCH (09:00)
[2022-04-15] MEDS ORDERED: ASPIRIN 325 MG TAB PO SCH (09:00)
[2022-04-15] MEDS ORDERED: ATORVASTATIN 10 MG TAB PO SCH (09:00)
--- NOTE | 2022-04-15 09:56 | P.CRDCN ---
History of Present Illness History of present illness: HISTORY OF PRESENT ILLNESS: This is a 61-year-old male with a past medical history significant for DVT/pulmonary embolism, hyperlipidemia, and nicotine dependence. Patient does not follow with a filter changer. We have been asked to see the patient in consultation for chest pain. Patient examined at the bedside. Patient states he recently went to his primary care physician with a chief complaint of chest pain over the past few weeks. He states his chest feels tight. He states that it is nonexertional. He states he can just occur when he is sitting down. He states when he went to his primary care physician his blood pressure was high. He does not take any blood pressure medications at home and states his blood pressure has been fairly normal until about a year ago. * EKG reveals sinus mechanism with no signs of acute ischemia * Chest xray negative for acute process * Laboratory data: WBC 7.3. Hemoglobin 14.7. Platelet count 198. D-dimer 0.41. Sodium 142. Potassium 4.1. BUN 15. Creatinine 0.82. Troponin negative 3. * Current home cardiac medications include aspirin 81 mg daily and atorvastatin 10 mg daily * Most recent echocardiogram obtained in January 2021 revealed ejection fraction 60-65% REVIEW OF SYSTEMS: At the time of my exam: CONSTITUTIONAL: Denies fever or chills. HEENT: Denies blurred vision, vision changes, or eye pain. Denies hemoptysis CARDIOVASCULAR: Denies chest pain. Denies orthopnea. Denies PND. Denies palpitations RESPIRATORY: Denies shortness of breath. GASTROINTESTINAL: Denies abdominal pain. Denies nausea or vomiting. HEMATOLOGIC: Denies bleeding disorders. GENITOURINARY: Denies any blood in urine. SKIN: Denies pruitis. Denies rash. PHYSICAL EXAM: VITAL SIGNS: Reviewed. GENERAL: Well-developed in no acute distress. HEENT: Head is normocephalic. Pupils are equal, round. Sclerae anicteric. Mucous membranes of the mouth are moist. Neck supple. No JVD or thyromegaly LUNGS: Respirations even and unlabored. Lungs essentially clear to auscultation bilaterally. HEART: Regular rate and rhythm. S1 and S2 heard. ABDOMEN: Soft. Nondistended. Nontender. EXTREMITIES: Normal range of motion. No clubbing or cyanosis. Peripheral pulses intact. No lower extremity edema NEUROLOGIC: Awake and alert. Oriented x 3. ASSESSMENT: Chest pain Hyperlipidemia Possible hypertension, currently normotensive History of DVT/pulmonary embolism Nicotine dependence PLAN: An acute coronary event has been ruled out Obtain 2-D echo to assess cardiac structure and function Continue to monitor blood pressure Check lipid panel and hemoglobin A1c Patient will undergo stress echocardiogram today. If negative, he may be d ischarged home from a cardiac standpoint Nurse practitioner note has been reviewed by physician. Signing provider agrees with the documented findings, assessment, and plan of care. Past Medical History Past Medical History: Cancer, Deep Vein Thrombosis (DVT), Hyperlipidemia, Pneumonia, Pulmonary Embolus (PE) Additional Past Medical History / Comment(s): seasonal allergies, kidney cancer, pt denies high cholesterol History of Any Multi-Drug Resistant Organisms: None Reported Additional Past Surgical History / Comment(s): partial nephrectomy Past Anesthesia/Blood Transfusion Reactions: No Reported Reaction Past Psychological History: Depression Smoking Status: Current every day smoker Past Alcohol Use History: Daily Additional Past Alcohol Use History / Comment(s): Patient states he has not drank daily since 1991. Past Drug Use History: None Reported - Past Family History Mother History Unknown: Yes Medications and Allergies Home Medications Medication Instructions Recorded Confirmed Type Atorvastatin Calcium [Lipitor] 10 mg PO DAILY 01/12/21 04/14/22 History DULoxetine HCL [Cymbalta] 30 mg PO HS 01/12/21 04/14/22 History Montelukast [Singulair] 10 mg PO HS 01/12/21 04/14/22 History Aspirin EC [Ecotrin Low Dose] 81 mg PO DAILY 04/14/22 04/14/22 History Allergies Allergy/AdvReac Type Severity Reaction Status Date / Time preservative multidose vial Allergy Hallucinati Uncoded 04/14/22 18:30 ons Physical Exam Vitals: Vital Signs Temp Pulse Pulse Resp BP BP Pulse Ox 04/15/22 07:00 97.8 F 53 L 16 135/67 96 04/15/22 02:00 97.4 F L 45 L 15 110/68 95 04/14/22 22:18 97.6 F 50 L 16 135/73 97 04/14/22 21:00 97.8 F 57 L 17 137/82 97 04/14/22 19:01 65 18 133/93 95 04/14/22 15:29 98.0 F 69 16 162/109 100 Intake and Output 01/17/23 01/18/23 01/18/23 22:59 06:59 14:59 Intake Total 0 Balance 0 Intake: Oral 0 Other: Voiding Method Toilet # Voids 2 Weight 95.254 kg Results 04/14/22 15:59 04/14/22 15:59 Cardiac Enzymes 04/14/22 04/14/22 04/14/22 Range/Units 15:59 15:59 18:41 AST 24 (17-59) U/L Troponin I <0.012 <0.012 (0.000-0.034) ng/mL 04/14/22 Range/Units 21:00 AST (17-59) U/L Troponin I <0.012 (0.000-0.034) ng/mL Coagulation 04/14/22 Range/Units 17:45 PT 12.0 (9.0-12.0) sec APTT 23.7 (22.0-30.0) sec CBC 04/14/22 Range/Units 15:59 WBC 7.3 (3.8-10.6) k/uL RBC 4.51 (4.30-5.90) m/uL Hgb 14.7 (13.0-17.5) gm/dL Hct 43.3 (39.0-53.0) % Plt Count 197 (150-450) k/uL Comprehensive Metabolic Panel 04/14/22 Range/Units 15:59 Sodium 142 (137-145) mmol/L Potassium 4.1 (3.5-5.1) mmol/L Chloride 110 H (98-107) mmol/L Carbon Dioxide 25 (22-30) mmol/L BUN 15 (9-20) mg/dL Creatinine 0.82 (0.66-1.25) mg/dL Glucose 83 (74-99) mg/dL Calcium 9.3 (8.4-10.2) mg/dL AST 24 (17-59) U/L ALT 31 (4-49) U/L Alkaline Phosphatase 49 (38-126) U/L Total Protein 6.3 (6.3-8.2) g/dL Albumin 4.1 (3.5-5.0) g/dL Current Medications Generic Name Dose Route Start Last Admin Trade Name Freq PRN Reason Stop Dose Admin Aspirin 81 mg 04/15/22 09:00 Aspirin 81 Mg PO DAILY [facility] Atorvastatin Calcium 10 mg 04/15/22 09:00 Atorvastatin 10 Mg Tab PO DAILY [facility] Duloxetine HCl 30 mg 04/14/22 21:00 04/14/22 20:54 Duloxetine Hcl 30 Mg Capsule.Dr PO 30 mg HS [facility] Administration Montelukast Sodium 10 mg 04/14/22 21:00 04/14/22 20:54 Montelukast 10 Mg Tab PO 10 mg HS [facility] Administration Nitroglycerin 0.4 mg 04/14/22 17:47 Nitroglycerin Sl Tabs 0.4 Mg Tab SUBLINGUAL Q5M PRN Chest Pain Nitroglycerin 1 inch 04/14/22 18:00 04/15/22 06:09 Nitroglycerin Oint 1 Inch/Gm Packet TOPICAL 1 inch Q6HR [facility] Administration Intake and Output 04/14/22 04/15/22 04/15/22 22:59 06:59 14:59 Intake Total 0 Balance 0 Intake: Oral 0 Other: Voiding Method Toilet # Voids 2 Weight 95.254 kg 04/14/22 15:59 04/14/22 15:59
--- NOTE | 2022-04-15 11:00 | CA ---
Stress Echo Report Pierre Emanuel Age: 61 Gender: M : 1960 Exam Date: 04/15/2022 09:18 Exam Location: [place] Stress Ht (in): 70 Wt (lb): 210 Ordering Physician: Dianne Bauman Referring Physician: [id number] Reynolds Social Studies Teacher: [employer] Technologist Procedure CPT: Indication: CP ICD-9 Codes: Rhythm: Patient History: Cardiac Medications: Medications in past 24 hours: Contrast: Stress Results Protocol: Mele Total dose(mL): Exercise Duration (min:sec): 8:[address] Depression (mm): Angina Score: Carballo Score: METS: 10.1 Resting HR: 51 Resting BP: 146 / 86 Peak HR: 137 Peak BP: 186 / 95 Max Predicted HR: 157 87 % Max Predicted HR Target HR: 133 Double Product: [id number] Stress Summary: BP Response: Reason for Termination: Reached target heart rate or work-load Cardiac Symptoms: NO SYMPTOMS ECG Analysis Resting ECG: Stress ECG: Arrhythmia: Echo Analysis Resting Echo: Peak Echo Analysis: MEASUREMENTS (Male/Female) Normal Values CONCLUSIONS Baseline heart rate 51 beats a minute, Baseline blood pressure 146/86. His mercury based) EKG shows normal sinus rhythm normal ST segments Patient exercised on a Mele protocol for atrial flutter and of minutes Peak heart rate 127 beats a minute, peak blood pressure 186/95 mmHg Asymptomatic No ECG evidence for ischemia, no arrhythmias Baseline 2-D echo May showed normal LV systolic function without segmental wall motion abnormalities At peak exercise there was excellent augmentation of overall LV contractility without I any wall motion abnormalities At recovery region global LV systolic function remained normal Impression no ECG or echocardiographic evidence for ischemia at this workload level Dr. Nicko Arriaga MD (Electronically Signed) Final Date: 15 April 2022 10:59
[2022-04-15] MEDS ORDERED: NICOTINE 21MG/24HR PATCH TRANSDERM SCH (13:15)
--- NOTE | 2022-04-15 13:55 | P.HPIM ---
History of Present Illness H&P Date: 04/15/22 Chief Complaint: Chest pain This is a pleasant 61-year-old patient who follows with Dr. Decker. Chronic stable medical conditions include ALLERGIES, joint pains, hyperlipidemia, cigarette smoker. In January 2021 patient had DVT/PE. For which he was on xarelto. Now on baby aspirin. Patient now presents with 3 weeks of chest tightness. These episodes can come at rest or with activity. Does no obvious precipitating factor. No shortness of breath. Sometimes lightheaded. No perspiration. Can last up to 1-1-1/2 hours. No edema. Patient has continued to smoke. Some cough. No prior cardiac history. Review of systems: GEN.: None EYES: None HEENT: None NECK: None RESPIRATORY: As above CARDIOVASCULAR: As above GASTROINTESTINAL: None GENITOURINARY: None MUSCULOSKELETAL: Joint pain LYMPHATICS: None HEMATOLOGICAL: None PSYCHIATRY: None NEUROLOGICAL: None Past medical history to include: Right-sided renal cell cancer with partial nephrectomy in 2014. Patient had serial follow-up l 2 years ago. COPD, hyperlipidemia, seasonal ALLERGIES, depression. DVT and PE January 2021 Social history: Crease alcohol in the past.. . 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 Smokes a pack a day for over 50 years. Physical examination: VITAL SIGNS: 97.8, 53, 16, 1 35 x 67, 96% room air GENERAL: [BMI 30.1, sitting at edge of the bed, awake comfortable. EYES: Pupils equal. Conjunctiva normal. HEENT: External appearance of nose and ears normal, oral cavity grossly normal. NECK: JVD not raised; masses not palpable. HEART: First and second heart sounds are normal; no edema. LUNGS: Respiratory rate normal; decreased breath sounds. ABDOMEN: Soft, nontender, liver spleen not palpable, no masses palpable. PSYCH: Alert and oriented x3; mood and affect normal. MUSCULOSKELETAL:No Clubbing/cyanosis;muscles-grossly intact. Evidence of OA NEUROLOGICAL: Cranial nerves grossly intact; no facial asymmetry, power and sensation grossly intact. LYMPHATICS: No lymph nodes palpable in the axilla and neck INVESTIGATIONS, reviewed in the clinical context: White count 7.3 hemoglobin 14.7 platelets 197 potassium 4.1 creatinine 0.82 Troponin I less than 0.0123 EKG tracing personally reviewed by me-normal sinus rhythm Chest x-ray film personally reviewed by me-borderline currently medically. Some prominence of pulmonary artery. Assessment and plan: -Anterior chest wall tightness with activity and even at rest. No edema. Rule out cardiac cause. Stress echocardiogram. Per cardiology. Troponin is negative. -COPD in a current smoker albuterol when necessary -Chronic nicotine dependence, cigarettes smoker Nicotine patch -Chronic ALLERGIES Singulair 10 mg daily at bedtime -Hyperlipidemia Lipitor 10 mg daily Past Medical History Past Medical History: Cancer, Deep Vein Thrombosis (DVT), Hyperlipidemia, Pneumonia, Pulmonary Embolus (PE) Additional Past Medical History / Comment(s): seasonal allergies, kidney cancer, pt denies high cholesterol History of Any Multi-Drug Resistant Organisms: None Reported Additional Past Surgical History / Comment(s): partial nephrectomy Past Anesthesia/Blood Transfusion Reactions: No Reported Reaction Past Psychological History: Depression Smoking Status: Current every day smoker Past Alcohol Use History: Daily Additional Past Alcohol Use History / Comment(s): Patient states he has not drank daily since 1991. Past Drug Use History: None Reported - Past Family History Mother History Unknown: Yes Medications and Allergies Home Medications Medication Instructions Recorded Confirmed Type Atorvastatin Calcium [Lipitor] 10 mg PO DAILY 01/12/21 04/14/22 History DULoxetine HCL [Cymbalta] 30 mg PO HS 01/12/21 04/14/22 History Montelukast [Singulair] 10 mg PO HS 01/12/21 04/14/22 History Aspirin EC [Ecotrin Low Dose] 81 mg PO DAILY 04/14/22 04/14/22 History Nicotine 21Mg/24Hr Patch [Habitrol] 1 patch TRANSDERM DAILY #14 patch 04/15/22 Rx Allergies Allergy/AdvReac Type Severity Reaction Status Date / Time preservative multidose vial Allergy Hallucinati Uncoded 04/14/22 18:30 ons Physical Exam Vitals: Vital Signs Temp Pulse Pulse Resp BP BP Pulse Ox 04/15/22 07:00 97.8 F 53 L 16 135/67 96 04/15/22 02:00 97.4 F L 45 L 15 110/68 95 04/14/22 22:18 97.6 F 50 L 16 135/73 97 04/14/22 21:00 97.8 F 57 L 17 137/82 97 04/14/22 19:01 65 18 133/93 95 04/14/22 15:29 98.0 F 69 16 162/109 100 Intake and Output 04/14/22 04/15/22 04/15/22 22:59 06:59 14:59 Intake Total 0 Balance 0 Intake: Oral 0 Other: Voiding Method Toilet # Voids 2 Weight 95.254 kg Results CBC & Chem 7: 04/14/22 15:59 04/14/22 15:59 Labs: Abnormal Lab Results - Last 24 Hours (Table) 04/14/22 04/14/22 Range/Units 15:59 17:45 INR 1.2 H (<1.2) Chloride 110 H (98-107) mmol/L Thrombosis Risk Factor Assmnt - Choose All That Apply Each Factor Represents 1 point: Obesity (BMI >25) Each Risk Factor Represents 2 Points: Age 61-74 years Each Risk Factor Represents 3 Points: History of DVT/PE Thrombosis Risk Factor Assessment Total Risk Factor Score: 6 Thrombosis Risk Factor Assessment Level: High Risk
--- NOTE | 2022-04-15 14:03 | P.DS ---
Providers Date of admission: 04/14/22 17:47 Expected date of discharge: 04/15/22 Attending physician: Marcelino Hernandez Consults: 04/14/22 17:47 Consult Physician Urgent Consulting Provider: Louie Solomon Consult Reason/Comments: cp Do you want consulting provider notified?: Yes Primary care physician: Phani Decker [facility] Course: Chief Complaint: Chest pain This is a pleasant 61-year-old patient who follows with Dr. Decker. Chronic stable medical conditions include ALLERGIES, joint pains, hyperlipidemia, cigarette smoker. In January 2021 patient had DVT/PE. For which he was on xarelto. Now on baby aspirin. Patient now presents with 3 weeks of chest tightness. These episodes can come at rest or with activity. Does no obvious precipitating factor. No shortness of breath. Sometimes lightheaded. No perspiration. Can last up to 1-1-1/2 hours. No edema. Patient has continued to smoke. Some cough. No prior cardiac history. Stress echocardiogram came back negative. I told the patient to follow with Dr. Amin from pulmonary who has followed before. For full PFTs. If that is negative he may need to be evaluated for pulmonary hypertension. Questions answered to the patient . Also counseled about smoking. Discussion and discharge planning more than 35 minutes Past medical history to include: Right-sided renal cell cancer with partial nephrectomy in 2014. Patient had serial follow-up l 2 years ago. COPD, hyperlipidemia, seasonal ALLERGIES, depression. DVT and PE January 2021 Social history: Crease alcohol in the past.. . 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 Smokes a pack a day for over 50 years. Physical examination: VITAL SIGNS: 97.8, 53, 16, 1 35 x 67, 96% room air GENERAL: [BMI 30.1, sitting at edge of the bed, awake comfortable. EYES: Pupils equal. Conjunctiva normal. HEENT: External appearance of nose and ears normal, oral cavity grossly normal. NECK: JVD not raised; masses not palpable. HEART: First and second heart sounds are normal; no edema. LUNGS: Respiratory rate normal; decreased breath sounds. ABDOMEN: Soft, nontender, liver spleen not palpable, no masses palpable. PSYCH: Alert and oriented x3; mood and affect normal. MUSCULOSKELETAL:No Clubbing/cyanosis;muscles-grossly intact. Evidence of OA NEUROLOGICAL: Cranial nerves grossly intact; no facial asymmetry, power and sensation grossly intact. LYMPHATICS: No lymph nodes palpable in the axilla and neck INVESTIGATIONS, reviewed in the clinical context: Stress echocardiogram negative for ischemia White count 7.3 hemoglobin 14.7 platelets 197 potassium 4.1 creatinine 0.82 Troponin I less than 0.0123 EKG tracing personally reviewed by me-normal sinus rhythm Chest x-ray film personally reviewed by me-borderline currently medically. Some prominence of pulmonary artery. Assessment and plan: -Anterior chest wall tightness with activity and even at rest. Outpatient follow-up with pulmonary for full PFTs and evaluation for pulmonary hypertension -COPD in a current smoker albuterol when necessary -Chronic nicotine dependence, cigarettes smoker Nicotine patch -Chronic ALLERGIES Singulair 10 mg daily at bedtime -Hyperlipidemia Lipitor 10 mg daily Plan - Discharge Summary New Discharge Prescriptions: New Nicotine 21Mg/24Hr Patch [Habitrol] 1 patch TRANSDERM DAILY #14 patch Continue Aspirin EC [Ecotrin Low Dose] 81 mg PO DAILY Montelukast [Singulair] 10 mg PO HS DULoxetine HCL [Cymbalta] 30 mg PO HS Atorvastatin Calcium [Lipitor] 10 mg PO DAILY Discharge Medication List Atorvastatin Calcium [Lipitor] 10 mg PO DAILY 01/12/21 [History] DULoxetine HCL [Cymbalta] 30 mg PO HS 01/12/21 [History] Montelukast [Singulair] 10 mg PO HS 01/12/21 [History] Aspirin EC [Ecotrin Low Dose] 81 mg PO DAILY 04/14/22 [History] Nicotine 21Mg/24Hr Patch [Habitrol] 1 patch TRANSDERM DAILY #14 patch 04/15/22 [Rx] Follow up Appointment(s)/Referral(s): Nicko Arriaga MD [STAFF PHYSICIAN] - 2 Weeks ([facility] will call patient with appointment date and time.) Phani Decker DO [Primary Care Provider] - 1-2 days Kris Dunn DO [Doctor of Osteopathic Medicine] - 1 Week ([facility] will call patient with appointment. Referral for full PFT (Pulmonary Function Test).)
[2022-04-16 06:28] LABS: Chol/HDL Ratio 3.66 Ratio; LDL Cholesterol,Calculated 78.2 mg/dL (0.0-131.0)
--- NOTE | 2022-04-16 10:08 | CA ---
Transthoracic Echo Report Name: Pierre Emanuel Age: 61 Gender: M : 1960 Exam Date: 04/15/2022 08:29 Exam Location: [facility] Ht (in): 61 Wt (lb): 210 Ordering Physician: Dianne Bauman Attending/Referring Phys: [id number], Mitul Forepart Rasper Remberto Estevez RDCS Procedure CPT: Indications: LV function Cardiac Hx: Technical Quality: Fair Contrast 1: Total Dose (mL): Contrast 2: Total Dose (mL): MEASUREMENTS (Male / Female) Normal Values 2D ECHO LV Diastolic Diameter PLAX 4.9 cm 4.2 - 5.9 / 3.9 - 5.3 cm LV Systolic Diameter PLAX 3.6 cm IVS Diastolic Thickness 1.2 cm 0.6 - 1.0 / 0.6 - 0.9 cm LVPW Diastolic Thickness 1.6 cm 0.6 - 1.0 / 0.6 - 0.9 cm LV Relative Wall Thickness 0.6 RV Internal Dim ED PLAX 3.0 cm LV Diastolic Volume MOD BP 89.4 cm??? 67 - 155 / 56 - 104 cm??? LV Systolic Volume MOD BP 43.8 cm??? 22 - 58 / 19 - 49 cm??? LV Ejection Fraction MOD BP 51.1 % >= 55 % LV Diastolic Volume MOD 4C 92.8 cm??? LV Systolic Volume MOD 4C 43.9 cm??? LV Ejection Fraction MOD 4C 52.6 % LV Diastolic Length 4C 8.8 cm LV Systolic Length 4C 6.9 cm LV Diastolic Volume MOD 2C 79.7 cm??? LV Systolic Volume MOD 2C 42.7 cm??? LV Ejection Fraction MOD 2C 46.4 % LV Diastolic Length 2C 8.1 cm LV Systolic Length 2C 6.6 cm LA Volume 74.3 cm??? 18 - 58 / 22 - 52 cm??? M-MODE Aortic Root Diameter MM 3.6 cm LA Systolic Diameter MM 5.6 cm LA Ao Ratio MM 1.5 MV E Point Septal Separation 0.3 cm AV Cusp Separation MM 2.1 cm DOPPLER AV Peak Velocity 98.6 cm/s AV Peak Gradient 3.9 mmHg LVOT Peak Velocity 84.0 cm/s LVOT Peak Gradient 2.8 mmHg MV Area PHT 3.6 cm??? MR Peak Velocity 409.5 cm/s MR Peak Gradient 67.1 mmHg Mitral E Point Velocity 75.5 cm/s Mitral A Point Velocity 72.9 cm/s Mitral E to A Ratio 1.0 MV Deceleration Time 212.2 ms TR Peak Velocity 237.6 cm/s TR Peak Gradient 22.6 mmHg PV Peak Velocity 58.6 cm/s PV Peak Gradient 1.4 mmHg FINDINGS Left Ventricle Mildly increased septal wall thickness. Mildly decreased left ventricular ejection fraction. Left ventricular ejection fraction is estimated at 50-55 %. Right Ventricle Normal right ventricular size and function. Right Atrium Normal right atrial size. Left Atrium Moderately increased left atrial volume. Moderate left atrial dilatation. Mitral Valve Structurally normal mitral valve. Mild mitral regurgitation. Aortic Valve Trileaflet aortic valve. No aortic regurgitation. No aortic stenosis. Tricuspid Valve Structurally normal tricuspid valve. Mild tricuspid regurgitation. Pulmonic Valve Structurally normal pulmonic valve. Pericardium Minimal pericardial effusion (normal variant). Aorta Normal size aortic root and proximal ascending aorta. CONCLUSIONS Normal LV size with ejection fraction of 50-55% No definite wall motion automatic Previewed by: Dr. Nicko Arriaga MD (Electronically Signed) Final Date: 16 April 2022 10:07
== END 2022-04-15 13:47 | disposition home or self-care (01) ==
LOC: EC 15:26 → 6NMEDSUR 17:47
PROVIDERS: ADMIT Hospitalist; ATTEND Hospitalist
DX: R07.89 Other chest pain (principal); J44.9 Chronic obstructive pulmonary disease, unspecified; F17.210 Nicotine dependence, cigarettes, uncomplicated; E78.5 Hyperlipidemia, unspecified; F32.A Depression, unspecified; Z86.718 Personal history of other venous thrombosis and embolism; Z86.711 Personal history of pulmonary embolism; Z87.898 Personal history of other specified conditions; Z85.528 Personal history of other malignant neoplasm of kidney; Z87.01 Personal history of pneumonia (recurrent); J30.2 Other seasonal allergic rhinitis; Z90.5 Acquired absence of kidney; Z79.82 Long term (current) use of aspirin; Z79.899 Other long term (current) drug therapy; Z88.8 Allergy status to other drugs, medicaments and biological substances
CPT/HCPCS: 99285; 36415; 93005; 93306; 93351; 85379; 80061; 80053; 83735; 84484; 85025; 85610; 85730; 83036; 71046; G0378 ×2